=== PATIENT | female | born 1940 | race Caucasian/White ===

== ENCOUNTER 2021-01-28 15:39 | Outpatient (CLI) | payer BC, SELFPAY ==
--- NOTE | 2021-01-28 15:45 | XR_ITS ---
WS: [id number] SCREENING DEXA SCAN [employer] CLINICAL INFORMATION: OSTEOPOROSIS COMPARISON: 2013 FINDINGS: The L1-L4 bone mineral density measures 0.988 g/cm2. This corresponds to a T score score of -1.6 and Z score of -0.5. Left femoral neck bone mineral density measures 0.829 g/cm2. This corresponds to a T score of -1.4 an d Z score of 0.0. Right femoral neck bone mineral density measures 0.825 g/cm2. This corresponds to a T score -1.4of an d Z score of 0.0. Mean femoral neck bone mineral density measures 0.827 g/cm2. This corresponds to a T score of -1.4 an d Z score of 0.0. XR/XR DEXA axial skeleton* 24598 IMPRESSION: Osteopenia Patient's FRAX calculated 10 year probability for major osteoporotic fracture i s 16.5 % and osteoporotic hip fracture is 5.2%.
== END 2021-01-28 15:40 | disposition home or self-care (01) ==
PROVIDERS: Visit Provider Family Medicine
DX: M81.0 Age-related osteoporosis without current pathological fracture (principal); M85.80 Other specified disorders of bone density and structure, unspecified site
CPT/HCPCS: 77080

== ENCOUNTER 2021-05-23 08:29 | Inpatient (IN) | payer MEDICARE, SELFPAY ==
[2021-05-23] VITALS (13 sets, daily range): BP systolic 158–250; BP diastolic 70–154; PULSE 59–88; RESP 16–22; TEMP 36.6–36.8; O2SAT 90–99; BMI 30.7
--- NOTE | 2021-05-23 08:39 | CT_ITS ---
WS: [id number] CT HEAD NONCONTRAST HISTORY: Symptoms of Acute Stroke; dizziness/vertigo; r facial droop TECHNIQUE: Contiguous axial imaging performed through the brain in 2.5 mm imaging. Bone and soft tiss ue windows. Sagittal and coronal reformats reviewed. All CT scans at [facility] use at least one of these dose optimization techniques: automated exposure control; mA and/or kV adjustment per pa tient size (includes targeted exams where dose is matched to clinical indication); or iterative recon struction. DLP: 854.52 mGy.cm COMPARISON: None available. No acute intracranial hemorrhage, midline shift or mass effect. Mild atrophy and mild chronic microvascular ischemic disease. No definite area of sulcal effacement. There is a prior lacunar infarct in the LEFT caudate head and the LEFT insular ribbon. Small lacunar infarct in the anterior limb of the RIGHT internal capsule. Ventricles: Normal size with no hydrocephalus. Paranasal sinuses: Very small air-fluid level LEFT maxillary sinus. Mastoid air cells: Well pneumatized. Calvarium and scalp: Skull is intact with no soft tissue edema or swelling. CT/CT head wo con* [id number] IMPRESSION: 1. No acute intracranial hemorrhage or edema. 2. Mild atrophy and mild chronic ischemic disease with chronic lacunar infarct s as described above. Notified Desmondtatianna Dunaway MD at 05/23/2021 9:23 AM.
--- NOTE | 2021-05-23 08:39 | XR_ITS ---
WS: [id number] Exam: XR chest 1V portable [id number] Date/Time of Exam: 05/23/2021 8:46 AM Reason For Exam: r facial droop; htn Comparison 08/11/2011. The lungs are fully expanded and clear. Heart size is top limits normal. No pleural effusions. Chroni c interstitial changes. Chronic widening of the superior mediastinum on the right. Bony structures ar e intact. XR/XR chest 1V portable [id number] IMPRESSION: 1. No acute cardiopulmonary finding. 2. Chronic interstitial changes. 3. Chronic widening of the superior mediastinum on the right.
--- NOTE | 2021-05-23 08:39 | ECG_ITS ---
[facility] Test Date: 2021-05-23 Pat Name: Darian Faith Department: Room: Gender: Female [employer]ooter: : 1940 Requested By: Desmond French Order Number: [id number] Reading MD: Inocencia Sheehan M.D. Measurements Intervals [place] Rate: 53 P: 81 SC: 150 QRS: 51 QRSD: 108 T: -4 QT: 528 QTc: 499 Interpretive Statements SINUS BRADYCARDIA WITH OCCASIONAL VENTRICULAR PREMATURE COMPLEXES ST DEVIATION AND MODERATE T-WAVE ABNORMALITY, CONSIDER INFERIOR ISCHEMIA [-0.1+ mV T-WAVE IN II/aVF] No previous ECG available for comparison Electronically Signed On 05-23-2021 19:16:06 CONVEYANCER by Inocencia Sheehan M.D. [id number] f
--- NOTE | 2021-05-23 08:45 | W.ED.NEUROSD ---
HPI - Neuro Symptoms/Deficit General: Chief Complaint: Neuro Symptoms/Deficit Stated Complaint: STROKE SYMPTOMS Time Seen by Provider: 05/23/21 08:31 Source: patient and EMS Mode of arrival: EMS Limitations: no limitations History of Present Illness: HPI Narrative: Patient reportedly went to bed around 10:30 PM last night. She states she awakened around 1:50 AM to go the bathroom and felt dizzy and had dry heaves. She states she was off balance from her vertigo. She went back to bed and was found by family in the morning on the floor. She states she tried to get up and became dizzy and fell. She denied striking her head. She does complain of mild right anterior knee pain. She states she had difficulty walking due to mild weakness in her right lower extremity. She states she was still dizzy. She denies any nausea now but still has mild dizziness. Her blood sugar was 246 by EMS prior to arrival. Blood pressure by EMS was 150s over 90s. However blood pressure was higher here in the ER. Patient states she did not have her medications for blood pressure this morning. She does not take any blood thinners. She denies any allergies to medications. She denies any previous CVA. She denies diabetes. She does have a history of hypertension. She denies tobacco or alcohol use. Last known well time was 2229 last night Location: right leg and other (Vertigo) History of same: No Severity: moderate Quality: weak Relieving factors: none Exacerbating factors: none On Anticoagulants: No Associated symptoms: Reports nausea, vertigo and vomiting; Deny chest pain, cough, diaphoresis, fevers/chills, headache(s), anorexia, malaise, seizures, short of breath, syncope, tingling or weakness Treatments Prior to Arrival: none Review of Systems Const: Denies: fever(s), chills, malaise or diaphoresis Eyes: Denies: change in vision ENMT: Denies: throat pain Card: Denies: chest pain or syncope Resp: Denies: dyspnea or wheezing GI: Reports: nausea and vomiting; Denies: abdominal pain : Denies: flank pain Musc: Denies: neck pain or back pain Skin/Breast: Denies: rash or pruritus Neuro: Reports: weakness in extremities, dizziness and vertigo; Denies: headache(s), confusion or Slurred speech present Psych: Denies: anxiety Timoteo/Lymph: Denies: enlarged lymph nodes PFSH ED PFSH: Medical History (Updated 05/23/21 @ 15:38 by Chris Jha MD) GERD (gastroesophageal reflux disease) HTN (hypertension) Hyperlipidemia Surgical History History of cholecystectomy History of hysterectomy History of tonsillectomy and adenoidectomy Family History (Updated 05/23/21 @ 15:29 by Chris Jha MD) Other Cancer Social History (Updated 05/23/21 @ 15:30 by Chris Jha MD) Smoking and tobacco status: never smoked Alcohol intake: never Physical Exam Const: COMMON NORMALS: no acute distress, patient oriented x3, no limitations and well nourished EXAM LIMITATIONS: no altered mental status GENERAL APPEARANCE: cooperative HENMT: COMMON NORMALS: normocephalic and atraumatic HEAD & SCALP: normocephalic and atraumatic FACE & SINUS: normal facial exam Eye: COMMON NORMALS: EOMs intact bilaterally Neck/C-Spine: COMMON NORMALS: full ROM, no lymphadenopathy, supple and no meningeal signs GENERAL: Yes normal visual inspection Lymph: LYMPHATIC: no lymphadenopathy noted Chest: COMMONS NORMALS: normal inspection of the chest and normal palpation of entire chest wall CHEST: No Ecchymosis present and No rash Resp: COMMON NORMALS: normal respiratory effort, No retractions and clear to auscultation bilaterally EFFORT & INSPECTION: No respiratory distress AUSCULTATION: clear to auscultation bilaterally Cardio: COMMON NORMALS: regular rate, regular rhythm and Peripheral pulses 2+ throughout JUGULAR VENOUS DISTENTION: no JVD RATE: regular rate RHYTHM: regular rhythm PERIPHERAL PULSES: Peripheral pulses 2+ throughout GI: COMMON NORMALS: Normal to inspection, nondistended, normoactive bowel sounds present and non-tender : COMMON NORMALS: Yes no CVA tenderness BLADDER/KIDNEY EXAM: Yes no CVA tenderness Back/Pelvis: COMMON NORMALS: no CVA tenderness Extremity: COMMON NORMALS: normal to inspection, full ROM and capillary refill normal Neuro: COMMON NORMALS: patient oriented x3, moves all extremities, no focal motor deficits, no sensory deficits noted and deep tendon reflexes 2+ bilaterally MENINGEAL SIGNS: Yes no meningeal signs CRANIAL NERVES: Yes CN normal except as noted and Yes CN VII (facial) (Mild right facial droop.) SPEECH: speech normal Psych: COMMON NORMALS: mental status grossly normal and Normal thought process present THOUGHT PROCESS: Normal thought process present Skin: COMMON NORMALS: no rashes or lesions noted and no wounds GENERAL SKIN EXAM: no rashes or lesions noted Course Vital Signs: Vital signs: Vital Signs Temperature 97.8 F 05/23/21 08:35 Pulse Rate 61 05/23/21 08:35 Respiratory Rate 18 05/23/21 08:35 Blood Pressure 158/77 05/23/21 13:29 Pulse Oximetry 96 05/23/21 08:35 MDM - Neuro Symptoms/Deficit MDM Narrative: Medical decision making narrative: Patient with elevated blood pressure will treat with hydralazine 0920: bp 175/62; still dizzy,will give small dose of phenergan 1020: I gave pt dysphagia screen and pt failed screen. pt will be npo. d/w dr. jha hospitalist. will proceed with cta of head/neck and then consult neurologist. Last know well time of 0 last pm. 1140: consult to [facility] for neuro consult. 1150: d/w neurologist Dr. Vela [facility]. He states that patient is not a candidate for tPA since she is out of the window for treatment. He will review the CT scans and discussed with neurosurgery and/or interventional radiology to see if patient is a candidate for any kind of intervention. He does not believe the patient will be a candidate for intervention but will consult to see if intervention is needed. 1230: d/w neurologist again. He discussed case with neuro interventional physician and they requested a MRI of the head without contrast with DWI/flair sequence which was a brief MRI of the brain. They will then review that and see if there decision making changes. At this point they do not recommend any intervention. He does recommend aspirin therapy at this time. 1515: MRI of the brain shows acute infarction/cva in the right posterior circulation. See MRI report 1535: D/w Dr. Vela with [facility]. He discussed case with his interventional neurology team. They decided that the patient is not a candidate for intervention after reviewing the MRI films. They recommend medical therapy only which includes aspirin and oral high-dose statin. He said he is available for further consult if needed. Dr. Jha hospitalist will admit the patient. He has seen the patient in the ER already. He wrote admission orders. Lab Data: Attestation: I reviewed the patient's lab results. Lab results narrative: glucose is a fasting level Labs: Lab Results 05/23/21 05/23/21 05/23/21 08:30 08:30 08:30 WBC 10.2 10^3/uL H 10 ^3/uL (4.0-10.0) RBC 4.98 10^6/uL 10^6 /uL (4.1-5.3) Hgb 14.5 g/dL g/dL (11.5-15.3) Hct 44.6 % % (37.0-47.0) MCV 89.6 fl fl (81-99) MCH 29.1 pg pg (28.0-34.0) MCHC 32.5 g/dL g/dL (30.0-36.0) RDW 13.9 % % (12.1-15.1) Plt Count 309 10^3/cmm 10^3 /cmm (130-400) MPV 9.5 fL fL (7.4-10.4) Neut % (Auto) 75.6 % % Lymph % (Auto) 18.7 % % [place] % (Auto) 4.7 % % Eos % (Auto) 0.2 % % Baso % (Auto) 0.4 % % Neut # (Auto) 7.68 10^3/uL 10^3 /uL (1.8-7.7) Lymph # (Auto) 1.9 10^3/uL 10^3/ uL (0.8-4.8) [place] # (Auto) 0.5 10^3/uL 10^3/ uL (0.2-0.9) Eos # (Auto) 0.0 10^3/uL 10^3/ uL (0.0-0.8) Baso # (Auto) 0.0 10^3/uL 10^3/ uL (0.0-0.1) Nucleated RBC % (a uto) 0 % % Nucleated RBCs # 0.0 /100WBC /100W BC APTT 26.6 SECONDS SECO NDS (23.9-36.7) Sodium 141 mmol/L mmol/L (136-145) Potassium 3.3 mmol/L L mmol /L (3.5-5.1) Chloride 97 mmol/L L mmol/ L (98-107) Carbon Dioxide 25 mmol/L mmol/L (22-29) Anion Gap 22.3 H (5-19) BUN 8 mg/dL mg/dL (8-23) Creatinine 0.7 mg/dL mg/dL (0.5-0.9) GFR Calculation Not Reportable Glucose 157 mg/dL H mg/dL (65-115) Calculated Osmolal ity 294 mOsm/kg mOsm/ kg (285-295) Calcium 9.1 mg/dL mg/dL (8.5-10.5) Total Bilirubin 0.5 mg/dL mg/dL (0.15-1.2) AST 32 U/L U/L (0-32) ALT 18 U/L U/L (0-33) Alkaline Phosphata se 58 IU/L IU/L (35-105) Total Protein 7.4 g/dL g/dL (6.6-8.7) Albumin 4.4 g/dL g/dL (3.5-5.2) Globulin 3.0 g/dL g/dL (1.3-4.6) Imaging Data^: Xray Ortho: Radiologist's impression: Ordering Provider/Ordering MD: Desmond Dunaway MD Date of Service: 05/23/21 Procedure(s): XR knee RT 4V [id number] Accession Number(s): [id number] Report Number: [id number] WS: [email or web address] Exam: XR knee RT 4V [id number] Date/Time of Exam: 05/23/2021 8:49 AM Reason For Exam: r knee pain/injury No acute fracture or dislocation. No joint effusion noted. Small bony protuberance seen along the lateral margin of the lateral femoral condyle may represent a small osteochondroma. Minimal DJD. No joint effusion seen. XR/XR knee RT 4V [id number] IMPRESSION: 1. Mild degenerative changes. 2. No fracture or joint effusion. Dictated By:Atul Hester, EMELINAigned By:Atul Hester, Janelle Date/Time:05/23/21 0911 CXR: Radiologist's impression: Ordering Provider/Ordering MD: Desmond Dunaway MD Date of Service: 05/23/21 Procedure(s): XR chest 1V portable [id number] Accession Number(s): [id number] Report Number: [id number] WS: [email or web address] Exam: XR chest 1V portable [id number] Date/Time of Exam: 05/23/2021 8:46 AM Reason For Exam: r facial droop; htn Comparison 08/11/2011. The lungs are fully expanded and clear. Heart size is top limits normal. No pleural effusions. Chronic interstitial changes. Chronic widening of the superior mediastinum on the right. Bony structures are intact. XR/XR chest 1V portable [id number] IMPRESSION: 1. No acute cardiopulmonary finding. 2. Chronic interstitial changes. 3. Chronic widening of the superior mediastinum on the right. Dictated By:Atul Hester, DOSigned By:Atul Hester, DOSigned Date/Time:05/23/[address] Head: Radiologist's impression: Ordering Provider/Ordering MD: Desmond Dunaway MD Date of Service: 05/23/21 Procedure(s): CT head wo con* [id number] Accession Number(s): [id number] Report Number: [id number] WS: [email or web address] CT HEAD NONCONTRAST HISTORY: Symptoms of Acute Stroke; dizziness/vertigo; r facial droop TECHNIQUE: Contiguous axial imaging performed through the brain in 2.5 mm imaging. Bone and soft tissue windows. Sagittal and coronal reformats reviewed. All CT scans at [facility] use at least one of these dose optimization techniques: automated exposure control; mA and/or kV adjustment per patient size (includes targeted exams where dose is matched to clinical indication); or iterative reconstruction. DLP: 854.52 mGy.cm COMPARISON: None available. No acute intracranial hemorrhage, midline shift or mass effect. Mild atrophy and mild chronic microvascular ischemic disease. No definite area of sulcal effacement. There is a prior lacunar infarct in the LEFT caudate head and the LEFT insular ribbon. Small lacunar infarct in the anterior limb of the RIGHT internal capsule. Ventricles: Normal size with no hydrocephalus. Paranasal sinuses: Very small air-fluid level LEFT maxillary sinus. Mastoid air cells: Well pneumatized. Calvarium and scalp: Skull is intact with no soft tissue edema or swelling. CT/CT head wo con* [id number] IMPRESSION: 1. No acute intracranial hemorrhage or edema. 2. Mild atrophy and mild chronic ischemic disease with chronic lacunar infarcts as described above. Notified Desmond Dunaway MD at 05/23/2021 9:23 AM. Dictated By:Leonor Mercado DOSigned By:Leonor Mercado DOSigned Date/Time:05/23/21 09 Other Imaging: Radiologist's impression: Ordering Provider/Ordering MD: Desmond Dunaway MD Date of Service: 05/23/21 Procedure(s): CT angio headneck* [id number] Accession Number(s): [id number] Report Number: [id number] WS: [email or web address] CT ANGIOGRAM CEREBRAL AND CAROTID ARTERIES HISTORY: weakness TECHNIQUE: CT angiogram is performed of the carotid and cerebral arteries. During arterial injection imaging is obtained from the skull vertex to the aortic arch in 1.25 mm imaging. Coronal and sagittal reformats are submitted. Additional multi planar reformats of the carotid and cerebral arteries are submitted, MIP imaging also reviewed. NASCET criteria utilized. All CT scans at [facility] use at least one of these dose optimization techniques: automated exposure control; mA and/or kV adjustment per patient size (includes targeted exams where dose is matched to clinical indication); or iterative reconstruction. CONTRAST: Omnipaque 350; 95 mL IV. DLP: 2301.63 mGy.cm COMPARISON: None available. Carotid Angiogram: Right carotid: Common carotid artery: Arises to inflammation innominate. Scattered plaque and mild intimal thickening. No significant stenosis. Internal carotid artery: Calcified plaque at the bifurcation. Plaque extends into the proximal and mid ICA but no high-grade stenosis. No thrombus identified. External carotid artery: Patent. Left carotid: Common carotid artery: Arises normally from the aorta. Small amount of calcified plaque and intimal thickening distally. Internal carotid artery: Increasing amount of calcified plaque in the bifurcation and proximal ICA. Calcification and plaque resulting in less than 50% stenosis. External carotid artery: Patent. Right vertebral artery: Small caliber RIGHT vertebral artery. Distal RIGHT vertebral artery is not visualized and occluded distal to the C1 vertebral body. Left vertebral artery: There is calcified plaque but no high-grade stenosis. Subclavian arteries: No stenosis or significant abnormality. Upper thorax: Slightly spiculated 4 mm nodule in the RIGHT upper lobe. Moderate calcified plaque within the aorta. Thyroid gland: There are several bilateral thyroid nodules. These are subcentimeter with the largest on the RIGHT measuring 4 mm. Osseous structures: Mild cervical spondylosis. 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 Distal LEFT vertebral artery is normal caliber with a few scattered plaques. Basilar artery: No significant stenosis or occlusion. No aneurysm. Intracranial Internal carotid arteries: Calcified plaque within the intracranial carotid arteries. 50% stenosis in the cavernous regions bilaterally in the supraclinoid carotids. No occlusion is identified. Middle cerebral arteries: Irregularity with areas of very mild narrowing in the LEFT M1 segment. No thrombus or occlusion identified. Normal caliber M2 and M3 segments. Very minimal atherosclerotic changes in the RIGHT M1 segment. No thrombus. Anterior cerebral arteries and ACOM: Normal. Posterior cerebral arteries and PCOM's: Small caliber posterior cerebral arteries but no occlusion. Posterior communicating arteries are intact. Dural venous sinuses are normally enhancing. Mastoid air cells: Normal. Paranasal sinuses: Normal. Calvarium: Normal. CT/CT angio headneck* [id number] IMPRESSION: 1. Very mild cervical carotid artery atherosclerosis. 2. Near 50% stenosis in the cavernous intracranial carotid arteries extending into the supraclinoid carotids. 3. Mild focal narrowing in the LEFT M1 segment. No complete occlusion and no thrombus identified. 4. Irregular 4 mm nodule RIGHT upper lobe. Recommend follow-up chest CT in 6 months. 5. 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 No acute thrombus. Dictated By:Leonor Mercado DOSigned By:Leonor Mercado DOSigned Date/Time:05/23/21 1131 MRI: Radiologist's impression: Ordering Provider/Ordering MD: Desmond Dunaway MD Date of Service: 05/23/21 Procedure(s): MR head wo con* [id number] Accession Number(s): [id number] Report Number: [id number] WS: [email or web address] MRI BRAIN WITHOUT CONTRAST, limited HISTORY: r side weakness; htn COMPARISON: None available. TECHNIQUE: Diffusion imaging, sagittal T1 and FLAIR axial are submitted. Diffusion-weighted images are positive involving the inferior medial RIGHT cerebellum. Infarct extends across the midline into the mid cerebellum to involve a small portion of the LEFT cerebellum. Infarct continues into the medial RIGHT occipital lobe. There is increased diffusion signal in the medulla. Medullary infarct indicates a branch from the vertebral or basilar artery. There was a focal defect in the distal RIGHT vertebral artery seen on the recent CTA which was thought to be congenital or hypoplastic. May be this is the site of a thrombus. No hyperdense thrombus was noted on the noncontrast CT. A filling defect could not be identified on the CT angiogram with certainty. There is additional extensive small vessel ischemic change within the juan and the supratentorial white matter. MR/MR head wo con* [id number] IMPRESSION: 1. Acute infarcts involving the RIGHT posterior circulation. There are acute infarcts involving the inferior RIGHT cerebellum, medial RIGHT occipital lobe and a small portion of the medulla oblongata. 2. No midline shift. Dictated By:Leonor Mercado DOSigned By:Leonor Mercado DOSigned Date/Time:05/23/21 1512 EKG Data^: EKG 1: Attestation: I personally reviewed and interpreted this EKG as follows: EKG interpretation date: 05/23/21 EKG interpretation time: 09:33 Interpretation: Sinus bradycardia with nonspecific ST-T changes. Artifact. LVH. Normal axis. Normal MN interval. Normal QT interval. Rare premature ventricular contraction Critical Care Time Critical Care Time: Critical Care Time: Yes Total Critical Care Time: 65 Attestation: .Stroke care. See orders. Specialist consultation Discharge Plan Discharge Patient Disposition: Admitted As Inpatient Clinical Impression: Hypertensive urgency Cerebrovascular accident Qualifiers: CVA mechanism: occlusion Precerebral and cerebral artery: vertebral artery Laterality of affected vessel: right Qualified Code(s): I63.211 - Cerebral infarction due to unspecified occlusion or stenosis of right vertebral artery Condition: Stable Coding Level of Care Code ED Virtual Assistant for Evelyn Fwd Exam Comprehensive
[2021-05-23] MEDS: hyDRALAzine 20 mg/mL INJ 1 mL 10 MG IVP ×3 (08:46→18:47)
--- NOTE | 2021-05-23 08:48 | XR_ITS ---
WS: [email or web address] Exam: XR knee RT 4V [id number] Date/Time of Exam: 05/23/2021 8:49 AM Reason For Exam: r knee pain/injury No acute fracture or dislocation. No joint effusion noted. Small bony protuberance seen along the lat eral margin of the lateral femoral condyle may represent a small osteochondroma. Minimal DJD. No join t effusion seen. XR/XR knee RT 4V [id number] IMPRESSION: 1. Mild degenerative changes. 2. No fracture or joint effusion.
[2021-05-23 08:50] LABS: Basophils % 0.4 %; Eosinophils % 0.2 %; Hematocrit 44.6 % (37.0-47.0); Hemoglobin 14.5 g/dL (11.5-15.3); Lymphocytes # 1.9 10^3/uL (0.8-4.8); Lymphocytes % 18.7 %; Mean Corpuscular HGB Conc 32.5 g/dL (30.0-36.0); Mean Corpuscular Hemoglobin 29.1 pg (28.0-34.0); Mean Corpuscular Volume 89.6 fl (81-99); Mean Platelet Volume 9.5 fL (7.4-10.4); Monocytes # 0.5 10^3/uL (0.2-0.9); Monocytes % 4.7 %; Neutrophils # 7.68 10^3/uL (1.8-7.7); Neutrophils % 75.6 %; Nucleated Red Blood Cells % 0 %; Platelet Count 309 10^3/cmm (130-400); Red Blood Count 4.98 10^6/uL (4.1-5.3); Red Cell Distribution Width 13.9 % (12.1-15.1); White Blood Count 10.2 10^3/uL (4.0-10.0)
[2021-05-23 08:53] LABS: Partial Thromboplastin Time 26.6 SECONDS (23.9-36.7)
[2021-05-23 08:58] LABS: Alanine Aminotransferase 18 U/L (0-33); Albumin Level 4.4 g/dL (3.5-5.2); Alkaline Phosphatase 58 IU/L (35-105); Anion Gap 22.3 (5-19); Aspartate Amino Transferase 32 U/L (0-32); Blood Urea Nitrogen 8 mg/dL (8-23); Calcium 9.1 mg/dL (8.5-10.5); Carbon Dioxide 25 mmol/L (22-29); Chloride 97 mmol/L (98-107); Creatinine Clr Calc Pharmacy 62.0012; Glucose 157 mg/dL (65-115); Osmolality Calculated 294 mOsm/kg (285-295); Potassium 3.3 mmol/L (3.5-5.1); Sodium 141 mmol/L (136-145); Total Bilirubin 0.5 mg/dL (0.15-1.2); Total Protein 7.4 g/dL (6.6-8.7)
[2021-05-23] MEDS: promethazine 25 mg/mL SDV 1 mL 6.25 MG IM (09:35)
--- NOTE | 2021-05-23 09:38 | PC.NURSE ---
pt placed on continuous spo2, nibp, and cm.
--- NOTE | 2021-05-23 10:26 | CT_ITS ---
WS: [id number] CT ANGIOGRAM CEREBRAL AND CAROTID ARTERIES HISTORY: weakness TECHNIQUE: CT angiogram is performed of the carotid and cerebral arteries. During arterial injection imaging is obtained from the skull vertex to the aortic arch in 1.25 mm imaging. Coronal and sagittal reformats are submitted. Additional multi planar reformats of the carotid and cerebral arteries are submitted, MIP imaging also reviewed. NASCET criteria utilized. All CT scans at [facility] us e at least one of these dose optimization techniques: automated exposure control; mA and/or kV adjust ment per patient size (includes targeted exams where dose is matched to clinical indication); or iter ative reconstruction. CONTRAST: Omnipaque 350; 95 mL IV. DLP: 2301.63 mGy.cm COMPARISON: None available. Carotid Angiogram: Right carotid: Common carotid artery: Arises to inflammation innominate. Scattered plaque and mild intimal thickenin g. No significant stenosis. Internal carotid artery: Calcified plaque at the bifurcation. Plaque extends into the proximal and mi d ICA but no high-grade stenosis. No thrombus identified. External carotid artery: Patent. Left carotid: Common carotid artery: Arises normally from the aorta. Small amount of calcified plaque and intimal t hickening distally. Internal carotid artery: Increasing amount of calcified plaque in the bifurcation and proximal ICA. C alcification and plaque resulting in less than 50% stenosis. External carotid artery: Patent. Right vertebral artery: Small caliber RIGHT vertebral artery. Distal RIGHT vertebral artery is not vi sualized and occluded distal to the C1 vertebral body. Left vertebral artery: There is calcified plaque but no high-grade stenosis. Subclavian arteries: No stenosis or significant abnormality. Upper thorax: Slightly spiculated 4 mm nodule in the RIGHT upper lobe. Moderate calcified plaque with in the aorta. Thyroid gland: There are several bilateral thyroid nodules. These are subcentimeter with the largest on the RIGHT measuring 4 mm. Osseous structures: Mild cervical spondylosis. 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 Di stal LEFT vertebral artery is normal caliber with a few scattered plaques. Basilar artery: No significant stenosis or occlusion. No aneurysm. Intracranial Internal carotid arteries: Calcified plaque within the intracranial carotid arteries. 50 % stenosis in the cavernous regions bilaterally in the supraclinoid carotids. No occlusion is identif ied. Middle cerebral arteries: Irregularity with areas of very mild narrowing in the LEFT M1 segment. No t hrombus or occlusion identified. Normal caliber M2 and M3 segments. Very minimal atherosclerotic regan ges in the RIGHT M1 segment. No thrombus. Anterior cerebral arteries and ACOM: Normal. Posterior cerebral arteries and PCOM's: Small caliber posterior cerebral arteries but no occlusion. P osterior communicating arteries are intact. Dural venous sinuses are normally enhancing. Mastoid air cells: Normal. Paranasal sinuses: Normal. Calvarium: Normal. CT/CT angio headneck* [id number] IMPRESSION: 1. Very mild cervical carotid artery atherosclerosis. 2. Near 50% stenosis in the cavernous intracranial carotid arteries extending into the supraclinoid carotids. 3. Mild focal narrowing in the LEFT M1 segment. No complete occlusion and no t hrombus identified. 4. Irregular 4 mm nodule RIGHT upper lobe. Recommend follow-up chest CT in 6 m onths. 5. 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 No acute thrombus.
[2021-05-23] MEDS: iohexol 350 mg/mL 100 mL Btl IV (10:53)
--- NOTE | 2021-05-23 12:41 | PM.HP ---
Providers/Chief Complaint Chief Complaint: STROKE SYMPTOMS History of Present Illness Darian Faith is a 80 year old female who presents to the ER today with right sided weakness that started last night. PMH is significant for HTN and hyperlipidemia. When she woke up last night to use the bathroom, she felt dizzy and tried to use her 's walker. She subsequently fell and her found her on the floor trying to crawl to the bathroom. She states that at that time, she felt like the room was spinning but denies any ringing in her ears. This morning she had trouble swallowing water. Family states that her speech seems more slurred than usual and that she appears to have a slight right facial droop and flushed face. Family endorses that patient at baseline is able to drive and do things on her own at home. Patient also reports some nausea and dry heaving that also started last night. Patient states she still feels right sided weakness,incoordination currently in the ER. She feels exhausted and notes that her vision has gotten blurrier and her neck has recently started hurting since arriving to the ER. In the ER, BP on arrival was 248/154. Repeat BP a few hours later was 190/90. Patient usually takes BP meds at home but endorses not taking any today. She is vaccinated and denies past history of COVID. Review of Systems General: Reports: 10 or more systems reviewed and unremarkable except in HPI and below Const: Reports: fatigue; Denies: fever(s) or chills Eyes: Reports: blurry vision ENMT: Denies: throat pain or tinnitus Card: Denies: chest pain Resp: Denies: dyspnea GI: Denies: abdominal pain : Denies: flank pain Musc: Reports: neck pain Skin/Breast: Denies: rash Neuro: Reports: dizziness; Denies: headache(s) Psych: Denies: anxiety Endo: Denies: polyuria Timoteo/Lymph: Denies: easy bruising All/Imm: Denies: urticaria Medications/Allergies Allergies Allergy/AdvReac Type Severity Reaction Status Date / Time No Known Allergies Allergy Verified 05/23/21 08:42 PFSH Acute PFSH: Medical History (Updated 05/23/21 @ 15:38 by Chris Ruiz MD) GERD (gastroesophageal reflux disease) HTN (hypertension) Hyperlipidemia Surgical History History of cholecystectomy History of hysterectomy History of tonsillectomy and adenoidectomy Family History (Updated 05/23/21 @ 15:29 by Chris Ruiz MD) Other Cancer Social History (Updated 05/23/21 @ 15:30 by Chris Ruiz MD) Smoking and tobacco status: never smoked Alcohol intake: never Vitals/I&O/Wt Last Vital Signs Temp 97.8 F 05/23/21 08:35 Pulse 61 05/23/21 08:35 Resp 18 05/23/21 08:35 BP 190/90 05/23/21 12:00 Pulse Ox 96 05/23/21 08:35 Weight last 48 hrs Weight 83.915 kg Physical Exam Narrative: EXAM NARRATIVE: General exam, female, holding the back of her head, fully conversant HEENT: Pupils equally round. Oropharynx clear. Neck is supple no lymphadenopathy thyromegaly Cardiovascular regular rate and rhythm without murmur, no S3 or S4 Lungs clear no wheezing or crackles Abdomen is soft with positive bowel sounds. No obvious organomegaly exam was deferred Extremities no cyanosis clubbing or edema, cap refill brisk Neuro: Suspected visual field defect. Cerebellar dysfunction noted right upper and lower extremities. No weakness is noted. Gait not tested. Skin no rash Data : 05/23/21 08:30 05/23/21 08:30 Other data: LFTs normal COVID PCR pending Knee x-ray no fracture. CT head mild atrophy, chronic ischemic changes and chronic lacunar infarcts Chest x-ray no infiltrate, chronic widening of mediastinum on the right CTA head and neck demonstrated 50% stenosis cavernous carotid intracranial arteries, focal narrowing M1 left, 4 mm nodule right upper lobe, intracranial right vertebral artery occlusion MRI demonstrates acute infarcts right posterior circulation, right cerebellum, medial right occipital lobe, small portion of the medulla oblongata EKG sinus bradycardia, 1 PVC, normal axis, nonspecific ST-T wave changes A&P Assessment and plan (1) Cerebrovascular accident: Significant cerebellar CVA Not candidate for intervention per David Aspirin given rectally today Plavix, aspirin, statin as tolerated starting tomorrow PT/OT/ ST consultations Hydration Check echocardiogram Telemetry Status: Acute Qualifiers: CVA mechanism: occlusion Laterality of affected vessel: right Precerebral and cerebral artery: vertebral artery Qualified Code(s): I63.211 - Cerebral infarction due to unspecified occlusion or stenosis of right vertebral artery (2) Hyperlipidemia: High-dose statin Status: Acute (3) HTN (hypertension): Permissive hypertension currently Status: Acute (4) GERD (gastroesophageal reflux disease): Pepcid for GI prophylaxis Status: Acute Additional A&P Information Mild hypokalemia. Add potassium and IV fluids. 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
--- NOTE | 2021-05-23 12:48 | PC.NURSE ---
while at bedside pt is in nad. pt denies any further needs at this time.
[2021-05-23] MEDS: aspirin 300 mg Supp PR (13:01)
--- NOTE | 2021-05-23 13:42 | PC.NURSE ---
PT BE TAKEN TO MRI VIA AMBULANCE AND STRETCHER.
--- NOTE | 2021-05-23 14:00 | MR_ITS ---
WS: [id number] MRI BRAIN WITHOUT CONTRAST, limited HISTORY: r side weakness; htn COMPARISON: None available. TECHNIQUE: Diffusion imaging, sagittal T1 and FLAIR axial are submitted. Diffusion-weighted images are positive involving the inferior medial RIGHT cerebellum. Infarct extend s across the midline into the mid cerebellum to involve a small portion of the LEFT cerebellum. Infar ct continues into the medial RIGHT occipital lobe. There is increased diffusion signal in the medulla . Medullary infarct indicates a branch from the vertebral or basilar artery. There was a focal defect in the distal RIGHT vertebral artery seen on the recent CTA which was thought to be congenital or hy poplastic. May be this is the site of a thrombus. No hyperdense thrombus was noted on the noncontrast CT. A filling defect could not be identified on the CT angiogram with certainty. There is additional extensive small vessel ischemic change within the juan and the supratentorial whi te matter. MR/MR head wo con* [id number] IMPRESSION: 1. Acute infarcts involving the RIGHT posterior circulation. There are acute i nfarcts involving the inferior RIGHT cerebellum, medial RIGHT occipital lobe an d a small portion of the medulla oblongata. 2. No midline shift.
[2021-05-23 16:10] LABS: Thyroid Stimulating Hormone 2.41 uIU/mL (0.27-4.20)
[2021-05-23 16:14] LABS: Estmated Average Glucose 123; Hemoglobin A1C 5.9 % (4.0-6.0)
[2021-05-23 16:21] LABS: Adenovirus Not Detected (NOT DETECT); Chlamydia Pneumoniae Not Detected (NOT DETECT); Coronavirus 229E,HKU1,NL63,OC4 Not Detected (NOT DETECT); Human Metapneumovirus Not Detected (NOT DETECT); Human Rhinovirus/Enterovirus Not Detected (NOT DETECT); Influenza A Not Detected (NOT DETECT); Influenza A H1 Not Detected (NOT DETECT); Influenza A H1-2009 Not Detected (NOT DETECT); Influenza A H3 Not Detected (NOT DETECT); Influenza B Not Detected (NOT DETECT); Mycoplasma Pneumoniae Not Detected (NOT DETECT); Parainfluenza Virus Type 1 Not Detected (NOT DETECT); Parainfluenza Virus Type 2 Not Detected (NOT DETECT); Parainfluenza Virus Type 3 Not Detected (NOT DETECT); Parainfluenza Virus Type 4 Not Detected (NOT DETECT); Respiratory Syncytial Virus A Not Detected (NOT DETECT); Respiratory Syncytial Virus B Not Detected (NOT DETECT); SARS-COV-2 Not Detected (NOT DETECT)
[2021-05-23] MEDS: sodium chlor 0.9% + KCl 20 mEq 20 MEQ/1,000 ML BAG 100 MEQ IV (16:24)
--- NOTE | 2021-05-23 16:30 | PC.NURSE ---
while at bedside pt is in nad.pt does not verbalize any further needs.
[2021-05-23] MEDS: morphine 4 mg/mL SDV 1 mL 2 MG IVP (17:33)
[2021-05-23] MEDS: ondansetron 2 mg/ML SDV 2 mL 4 MG IVP (17:33)
[2021-05-23] MEDS: enoxaparin 40 mg/0.4 mL Syringe SUBCUT (17:35)
--- NOTE | 2021-05-23 19:15 | PC.NURSE ---
report given to kirit martin assumed care.
[2021-05-24] VITALS (11 sets, daily range): BP systolic 166–195; BP diastolic 67–80; PULSE 80–110; RESP 16–22; TEMP 36.5–37.2; O2SAT 89–98
[2021-05-24] MEDS: sodium chlor 0.9% + KCl 20 mEq 20 MEQ/1,000 ML BAG 100 MEQ IV ×2 (01:35→13:27)
[2021-05-24] MEDS: acetaminophen 325 mg Tablet 650 MG PO (01:51)
--- NOTE | 2021-05-24 06:00 | USCV_ITS ---
Darian Faith Age: 80 Gender: F : 1940 Exam Date: 05/24/2021 06:13 Ordering Phys: Chris Ruiz MD Technologist: DONTE [place] [facility] [place]: CVA BP: 180 / 73 HR: 71 Rhythm: Sinus Technical Quality: Technically difficult study MEASUREMENTS (Male / Female) Normal Values 2D ECHO LV Diastolic Diameter PLAX 4.4 cm 4.2 - 5.9 / 3.9 - 5.3 cm LV Systolic Diameter PLAX 3.0 cm IVS Diastolic Thickness 0.9 cm 0.6 - 1.0 / 0.6 - 0.9 cm IVS Systolic Thickness 1.6 cm LVPW Diastolic Thickness 1.4 cm 0.6 - 1.0 / 0.6 - 0.9 cm LVPW Systolic Thickness 1.3 cm RV Chamber Size 2.4 cm LVOT Diameter 2.0 cm LV Ejection Fraction 2D Teich 60.2 % LV Ejection Fraction MOD 2C 51.9 % LV Ejection Fraction 2C AL 50.9 % LA Diameter 3.3 cm LA Width 3.1 cm LA Height 4.3 cm RA Width 2.8 cm RA Height 4.1 cm Aorta at Sinotubular Diameter 2.1 cm M-MODE Aortic Annulus Diameter 3.1 cm LA Ao Ratio MM 1.0 MV E Point Septal Separation 0.3 cm DOPPLER AV Peak Velocity 159.0 cm/s LVOT Peak Velocity 132.0 cm/s AV Area Cont Eq vti 2.8 cm squared AV Area Cont Eq pk 2.7 cm squared MV Area PHT 3.7 cm squared Mitral E to A Ratio 1.3 MV E' Velocity 62.0 cm/s Mitral E to MV E' Ratio 21.1 Mitral E to LV E' Lateral Ratio 20.8 Mitral E to LV E' Septal Ratio 21.5 TR Peak Velocity 382.0 cm/s TR Peak Gradient 58.4 mmHg TV Peak E Velocity 49.0 cm/s PV Peak Velocity 114.0 cm/s RV Acceleration Time 0.1 s RV Ejection Time 0.3 s RV AcT/ET 0.4 FINDINGS Left Ventricle Normal left ventricular size and systolic function, EF 63 %. No regional wall motion abnormalities. Grade III/IV diastolic dysfunction (restrictive filling pattern), severely elevated filling pressures. Right Ventricle The right ventricle is normal in size and function. Right Atrium The right atrium is normal in size. Left Atrium Mildly increased left atrial size. Mitral Valve Moderate mitral annular calcification. Aortic Valve Thickened aortic valve. Tricuspid Valve No gross abnormalities noted Pulmonic Valve Pulmonic valve not well visualized. Pericardium Normal pericardium without effusion. Aorta Normal ascending aorta dimension. CONCLUSIONS Normal left ventricular size and systolic function, EF 63 %. No regional wall motion abnormalities. Grade III/IV diastolic dysfunction (restrictive filling pattern), severely elevated filling pressures. Mildly increased left atrial size. Moderate mitral annular calcification. There is no pericardial effusion. There are no intracardiac masses. No previous study is available for comparison. Dr Alejandro Pollard MD FACC (Electronically Signed) Final Date: 24 May 2021 17:37 S
[2021-05-24 06:03] LABS: Basophils % 0.1 %; Hematocrit 41.9 % (37.0-47.0); Hemoglobin 13.6 g/dL (11.5-15.3); Lymphocytes % 6.8 %; Mean Corpuscular HGB Conc 32.5 g/dL (30.0-36.0); Mean Corpuscular Hemoglobin 29.7 pg (28.0-34.0); Mean Corpuscular Volume 91.5 fl (81-99); Mean Platelet Volume 9.6 fL (7.4-10.4); Monocytes # 1.3 10^3/uL (0.2-0.9); Monocytes % 9.2 %; Neutrophils # 11.76 10^3/uL (1.8-7.7); Neutrophils % 83.4 %; Nucleated Red Blood Cells % 0 %; Platelet Count 258 10^3/cmm (130-400); Red Blood Count 4.58 10^6/uL (4.1-5.3); Red Cell Distribution Width 14.6 % (12.1-15.1); White Blood Count 14.1 10^3/uL (4.0-10.0)
[2021-05-24 06:17] LABS: Estmated Average Glucose 123; Hemoglobin A1C 5.9 % (4.0-6.0)
[2021-05-24 06:25] LABS: Blood Urea Nitrogen 12 mg/dL (8-23); Calcium 8.1 mg/dL (8.5-10.5); Carbon Dioxide 24 mmol/L (22-29); Chloride 98 mmol/L (98-107); Cholesterol 176 mg/dL (0-200); Creatinine Clr Calc Pharmacy 62.0012; Glucose 127 mg/dL (65-115); HDL Cholesterol 40 mg/dL (60-100); LDL Cholesterol Calculated 97 mg/dL (50-129); LDL HDL Ratio 2.43 RATIO (0.00-3.22); Osmolality Calculated 287 mOsm/kg (285-295); Sodium 138 mmol/L (136-145); Triglycerides 195 mg/dL (0-150)
[2021-05-24 06:27] LABS: Anion Gap 19.9 (5-19); Potassium 3.9 mmol/L (3.5-5.1)
--- NOTE | 2021-05-24 09:08 | PM.PN ---
Subjective Subjective: Interval history: Darian reports no headache today. She seems somewhat slow in her responses, perhaps mildly confused. Denies being short of breath. It appears her oxygen was turned up last night, but quickly was able to be lowered to room air this morning. Medications: Reviewed: Yes Vitals/I&O/Wt Last Vital Signs Temp 98.2 F 05/24/21 08:00 Pulse 90 05/24/21 08:00 Resp 18 05/24/21 08:00 BP 166/76 05/24/21 08:00 Pulse Ox 91 05/24/21 08:00 05/23/21 05/24/21 05/24/21 22:59 06:59 14:59 Intake Total 918.333 / 918.333 Output Total 325 / 325 Balance 593.333 / 593.333 Weight last 48 hrs Weight 83.915 kg Physical Exam Narrative: EXAM NARRATIVE: General exam, no obvious distress and conversant Neck is supple no lymphadenopathy thyromegaly Cardiovascular regular rate and rhythm without murmur, no S3 or S4 Lungs clear no wheezing or crackles Abdomen is soft with positive bowel sounds. No obvious organomegaly Extremities no cyanosis clubbing or edema, cap refill brisk Neuro: Suspected visual field defect. Cerebellar dysfunction noted right upper and lower extremities. No weakness is noted. Data : 05/24/21 04:48 05/24/21 04:48 A&P Assessment and plan (1) Cerebrovascular accident: Significant cerebellar CVA Not candidate for intervention per Hernandez Plavix, aspirin, statin PT/OT/ ST consultations Continue hydration. Reduce fluids slightly Await echocardiogram Telemetry Speech therapy hopefully can initiate a diet today. Status: Acute Qualifiers: CVA mechanism: occlusion Laterality of affected vessel: right Precerebral and cerebral artery: vertebral artery Qualified Code(s): I63.211 - Cerebral infarction due to unspecified occlusion or stenosis of right vertebral artery (2) Hyperlipidemia: High-dose statin Status: Acute (3) HTN (hypertension): Permissive hypertension currently Status: Acute (4) GERD (gastroesophageal reflux disease): Pepcid for GI prophylaxis Status: Acute Additional A&P Information Mild hypokalemia. 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
[2021-05-24] MEDS: ipratropium-albuterol 3 mL Neb INHALATION ×2 (10:40→20:07)
--- NOTE | 2021-05-24 15:04 | PC.CHAP ---
Pastoral Care Encounter/Spiritual Assessment Type of Contact [] Declined dental technologist visit [] Patient/Family/Request visit [] Outpatient visit [] Follow-up visit [] Physician referral [] Code/Alert [xx] Routine visit [] Staff referral [] Actively dying [] Patient sleeping [] Family support [] [] Out of room [] Palliative care [] [] Receiving care in room [] Pre-surgical visit [] Trauma [] Long length of stay [] ICU visit [] Other: Relational/Emotional Strength [xx] Patient feels connected with others/family/visitors/staff [] Distress [] Loneliness/isolation [] Abandonment Spirituality of Patient [] Person of Natalia [] Attends Faith of their Natalia [] Believes in Prayer [] Reads Bible or Hindu materials [] There are Spiritual issues to be addressed Supervisor Case Loading Interventions [] Prayer [xx] Active listening [xx] Non-anxious presence [] Spiritual/emotional support [] Crisis/trauma care [] Spiritual counseling [] Bereavement support [] Provided bereavement packet [] Provided Bible/devotional materials [] Provided toy/stuffed animal, coloring book to patient or family member [] Provided Communion [] Anointing/[place] [] Salvation [xx] Completed spiritual assessment [] Other: Impact on Illness or Injury [] Angry [] Fearful [] Anxious [] Often cries [] Exhaustion [] Unable to work [] Unable to attend religious [] Unable to walk/stand [] Unable to read [] Unable to drive [] Unable to eat/drink [] Unable to sleep [] Unable to be with family [] Patient intubated [] Other: Summary Patient had 2 daughters present. They declined prayer. Patient did not speak. Time spent with patient 1 minute
[2021-05-24] MEDS: enoxaparin 40 mg/0.4 mL Syringe SUBCUT (19:10)
[2021-05-25] VITALS (9 sets, daily range): BP systolic 185–190; BP diastolic 78–95; PULSE 75–110; RESP 14–19; TEMP 36.7–37.3; O2SAT 91–99
[2021-05-25 04:47] LABS: Basophils % 0.4 %; Hematocrit 40.3 % (37.0-47.0); Hemoglobin 12.8 g/dL (11.5-15.3); Lymphocytes # 1.3 10^3/uL (0.8-4.8); Lymphocytes % 13.4 %; Mean Corpuscular HGB Conc 31.8 g/dL (30.0-36.0); Mean Corpuscular Hemoglobin 29.1 pg (28.0-34.0); Mean Corpuscular Volume 91.6 fl (81-99); Mean Platelet Volume 9.5 fL (7.4-10.4); Monocytes # 0.7 10^3/uL (0.2-0.9); Monocytes % 6.9 %; Neutrophils # 7.45 10^3/uL (1.8-7.7); Neutrophils % 78.4 %; Nucleated Red Blood Cells % 0 %; Platelet Count 232 10^3/cmm (130-400); Red Cell Distribution Width 14.7 % (12.1-15.1); White Blood Count 9.5 10^3/uL (4.0-10.0)
[2021-05-25 05:33] LABS: Anion Gap 15.2 (5-19); Blood Urea Nitrogen 12 mg/dL (8-23); Calcium 8.6 mg/dL (8.5-10.5); Carbon Dioxide 28 mmol/L (22-29); Chloride 103 mmol/L (98-107); Creatinine Clr Calc Pharmacy 62.0012; Glucose 119 mg/dL (65-115); Osmolality Calculated 297 mOsm/kg (285-295); Potassium 3.2 mmol/L (3.5-5.1); Sodium 143 mmol/L (136-145)
[2021-05-25] MEDS: sodium chlor 0.9% + KCl 20 mEq 20 MEQ/1,000 ML BAG 75 MEQ IV (08:38)
[2021-05-25 10:36] LABS: Magnesium 1.8 mg/dL (1.7-2.3)
--- NOTE | 2021-05-25 11:02 | P.PN_ITS ---
Subjective Subjective: Interval history: No headache. Still with some coordination issues on the right. Does not feel like she can swallow. Medications: Reviewed: Yes Vitals/I&O/Wt Last Vital Signs Temp 98.8 F 05/25/21 09:07 Pulse 80 05/25/21 09:07 Resp 16 05/25/21 09:07 BP 190/79 05/25/21 09:07 Pulse Ox 98 05/25/21 09:07 05/24/21 05/25/21 05/25/21 22:59 06:59 14:59 Intake Total 1000 / 2000 Output Total 400 / 400 Balance 600 / 1600 Physical Exam Narrative: EXAM NARRATIVE: General exam, no distress, conversant Neck is supple no lymphadenopathy thyromegaly Cardiovascular regular rate and rhythm without murmur, no S3 or S4 Lungs clear no wheezing or crackles Abdomen is soft with positive bowel sounds. No obvious organomegaly Extremities no cyanosis clubbing or edema, cap refill brisk Neuro: Suspected visual field defect. Cerebellar dysfunction noted right upper and lower extremities. No weakness is noted. Overall unchanged Data : 05/25/21 04:05 05/25/21 04:05 A&P Assessment and plan (1) Cerebrovascular accident: Significant cerebellar CVA Not candidate for intervention per Hernandez Plavix, aspirin, statin PT/OT/ ST consultations Continue hydration. Changed to D5 If unable to take orally by tomorrow consider PEG tube and surgery consultation Echocardiogram demonstrated EF of 63%, 3/4 diastolic dysfunction Telemetry Status: Acute Qualifiers: CVA mechanism: occlusion Laterality of affected vessel: right Precerebral and cerebral artery: vertebral artery Qualified Code(s): I63.211 - Cerebral infarction due to unspecified occlusion or stenosis of right vertebral artery (2) Hyperlipidemia: High-dose statin Status: Acute (3) HTN (hypertension): Permissive hypertension currently Status: Acute (4) GERD (gastroesophageal reflux disease): Pepcid for GI prophylaxis Status: Acute Additional A&P Information Mild hypokalemia. Supplement. Check magnesium level. 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
[2021-05-25] MEDS: morphine 4 mg/mL SDV 1 mL 2 MG IVP (11:18)
[2021-05-25] MEDS: dextrose 5%-ns + KCl 20 20 MEQ/1,000 ML BAG 100 MEQ IV ×2 (11:21→19:24)
[2021-05-25] MEDS: aspirin 300 mg Supp PR (12:37)
[2021-05-25] MEDS: lidocaine 1% 5 ML in potassium chloride premix 100 ML 25 ML IV (12:38)
[2021-05-25] MEDS: enoxaparin 40 mg/0.4 mL Syringe SUBCUT (16:58)
--- NOTE | 2021-05-25 21:32 | PC.NURSE ---
ASSESSMENT Pt is forgetful and when gets up to BSC she asks several times what she needs to do next. When questioned she is oriented. Has pad call light that she just needs to put her hand on and she does use it but thinks it isnt working because she cant hear it ring. Assured it is working. Is a little off balance when she gets up but does well with one assist. Moves all extremities well and no drift noted with neuro check done ths evening. Does have problens with her peripheral vision and swallowing.
[2021-05-26] VITALS (9 sets, daily range): BP systolic 172–207; BP diastolic 79–107; PULSE 69–99; RESP 16–22; TEMP 36.6–37.1; O2SAT 93–96
[2021-05-26 04:22] LABS: Anion Gap 14.1 (5-19); Blood Urea Nitrogen 12 mg/dL (8-23); Calcium 8.1 mg/dL (8.5-10.5); Carbon Dioxide 25 mmol/L (22-29); Chloride 108 mmol/L (98-107); Creatinine Clr Calc Pharmacy 62.0012; Glucose 121 mg/dL (65-115); Osmolality Calculated 297 mOsm/kg (285-295); Potassium 4.1 mmol/L (3.5-5.1); Sodium 143 mmol/L (136-145)
[2021-05-26] MEDS: dextrose 5%-ns + KCl 20 20 MEQ/1,000 ML BAG 100 MEQ IV ×2 (05:02→18:10)
--- NOTE | 2021-05-26 05:24 | PC.NURSE ---
SHIFT SUMMARY Has not slept much tonight. Has been up many times to BSC. Urinates 100-150ml at a time. Continues to require some direction at times as to what she needs to do. Will ask what she needs to do next. For example she will ask if she needs to sit down now when getting up to BSC. Has always used call light tonight when needing to get up. Bed alarm has been kept on for safety. Does have some occ balance issues occ and seems to be on right side. Moves all extremities well and is able to lift legs onto bed without any difficulty. This morning stated she was just a little dizzy when she sat up but passed quickly. Speech is clear. IV infusing at 100ml/hr rate. Remains NPO
--- NOTE | 2021-05-26 07:48 | PC.NURSE ---
i reported the high bp to the nurse. / 207/78
[2021-05-26] MEDS: hyDRALAzine 20 mg/mL INJ 1 mL 5 MG IVP (09:58)
[2021-05-26] MEDS: aspirin 300 mg Supp PR (09:58)
--- NOTE | 2021-05-26 10:55 | PC.SOCIAL ---
IMM Update pg 2 of IMM updated and reviewed w/ patient. Copy provided and copy placed in chart.
[2021-05-26] MEDS: morphine 4 mg/mL SDV 1 mL 2 MG IVP (13:07)
--- NOTE | 2021-05-26 13:31 | PM.PN ---
Subjective Subjective: Interval history: Patient reports she is doing okay but still cannot swallow. Still feels clumsy on the right side. Medications: Reviewed: Yes Vitals/I&O/Wt Last Vital Signs Temp 98.6 F 05/26/21 11:41 Pulse 89 05/26/21 11:41 Resp 18 05/26/21 13:07 BP 196/80 05/26/21 11:41 Pulse Ox 95 05/26/21 11:41 05/25/21 05/26/21 05/26/21 22:59 06:59 14:59 Intake Total 910 / 1116.25 950 / 2066.25 Output Total 325 / 325 750 / 1075 Balance 585 / 791.25 200 / 991.25 Physical Exam Narrative: EXAM NARRATIVE: General exam, no distress, conversant, frustrated at still being in the hospital Neck is supple Cardiovascular regular rate and rhythm without murmur, no S3 or S4 Lungs clear no wheezing or crackles Abdomen is soft with positive bowel sounds. No obvious organomegaly Extremities no cyanosis clubbing or edema, cap refill brisk Neuro: Suspected visual field defect. Cerebellar dysfunction noted right upper and lower extremities. No weakness is noted. Again unchanged Data : 05/25/21 04:05 05/26/21 02:17 A&P Assessment and plan (1) Cerebrovascular accident: Significant cerebellar CVA Not candidate for intervention per Hernandez Plavix, aspirin, statin PT/OT/ ST consultations Continue hydration. Changed to D5 Surgery consultation for PEG tube Echocardiogram demonstrated EF of 63%, 3/4 diastolic dysfunction Telemetry Status: Acute Qualifiers: CVA mechanism: occlusion Laterality of affected vessel: right Precerebral and cerebral artery: vertebral artery Qualified Code(s): I63.211 - Cerebral infarction due to unspecified occlusion or stenosis of right vertebral artery (2) Hyperlipidemia: High-dose statin Status: Acute (3) HTN (hypertension): Permissive hypertension allowed for the first 48 hours For systolic blood pressure greater than 200, diastolic greater than 100 hydralazine will be used at this point and will start regular meds when PEG is established. Status: Acute (4) GERD (gastroesophageal reflux disease): Pepcid for GI prophylaxis Status: Acute Additional A&P Information Mild hypokalemia. Normal today Full code DVT prophylaxis with Lovenox Attestations Medical Necessity Statement*: Needs continued hospitalization secondary to significant cerebellar CVA with inability to swallow. 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
[2021-05-26] MEDS: enoxaparin 40 mg/0.4 mL Syringe SUBCUT (18:10)
--- NOTE | 2021-05-26 19:56 | PC.NURSE ---
Shift report received from Tiffany HELMS. Patient up on BSC. IV patent/infusing NS at 75mL/hr. Denies pain. No s/s of pain or discomfort. No needs voiced at this time.
[2021-05-27] VITALS (11 sets, daily range): BP systolic 144–224; BP diastolic 61–112; PULSE 70–115; RESP 14–18; TEMP 36.6–36.8; O2SAT 94–98
[2021-05-27] MEDS: hyDRALAzine 20 mg/mL INJ 1 mL 10 MG IVP ×2 (00:01→16:26)
[2021-05-27 07:01] LABS: Anion Gap 17.7 (5-19); Blood Urea Nitrogen 11 mg/dL (8-23); Calcium 9.4 mg/dL (8.5-10.5); Carbon Dioxide 21 mmol/L (22-29); Chloride 110 mmol/L (98-107); Creatinine Clr Calc Pharmacy 62.0012; Glucose 112 mg/dL (65-115); Osmolality Calculated 300 mOsm/kg (285-295); Potassium 3.7 mmol/L (3.5-5.1); Sodium 145 mmol/L (136-145)
[2021-05-27 07:02] LABS: Basophils # 0.1 10^3/uL (0.0-0.1); Eosinophils # 0.1 10^3/uL (0.0-0.8); Eosinophils % 0.6 %; Hematocrit 40.4 % (37.0-47.0); Hemoglobin 12.8 g/dL (11.5-15.3); Lymphocytes # 1.6 10^3/uL (0.8-4.8); Lymphocytes % 19.2 %; Mean Corpuscular HGB Conc 31.7 g/dL (30.0-36.0); Mean Corpuscular Hemoglobin 29.4 pg (28.0-34.0); Mean Corpuscular Volume 92.7 fl (81-99); Mean Platelet Volume 9.7 fL (7.4-10.4); Monocytes # 0.6 10^3/uL (0.2-0.9); Monocytes % 7.3 %; Neutrophils # 5.82 10^3/uL (1.8-7.7); Neutrophils % 70.8 %; Nucleated Red Blood Cells % 0 %; Platelet Count 272 10^3/cmm (130-400); Red Blood Count 4.36 10^6/uL (4.1-5.3); White Blood Count 8.2 10^3/uL (4.0-10.0)
[2021-05-27] MEDS: ipratropium-albuterol 3 mL Neb INHALATION ×2 (07:41→20:27)
[2021-05-27] MEDS: dextrose 5%-ns + KCl 20 20 MEQ/1,000 ML BAG 100 MEQ IV (07:46)
--- NOTE | 2021-05-27 08:25 | P.ANESASSM_ITS ---
Pre-Anesthetic Assessment Pre-Anesthetic Assessment: Height/Weight: Height 1.65 m Weight 83.915 kg Temp Pulse Resp BP Pulse Ox 98.3 F 85 18 199/82 96 05/27/21 04:26 05/27/21 07:46 05/27/21 07:43 05/27/21 04:26 05/27/21 07:43 Preop Diagnosis: cva Proposed Procedure: Operation Date: 05/27/21 11:30 Proposed Procedures p EGD(Not Applicable) - Chad Hendricks MD s PEG Tube Insertion(Not Applicable) - Chad Hendricks MD Was Beta Liam taken within 24 hours: N/A (Home medication not prescribed in hospital) Was Clonidine taken within 24 hours: N/A Social: Social History: No alcohol and No tobacco Exam: Pre-Anes Outpt Exam: alert, oriented x 3, clear to auscultation bilaterally and regular rate & rhythm Airway: Submandibular: WNL Cervical ROM: WNL MP: 2 Dentition: Full Pulmonary: Comments: Apnea observed in hospital no dx of TRACI CV/HEM: CV/HEM: HTN Comments: TTE 05/25 CONCLUSIONS Normal left ventricular size and systolic function, EF 63 %. No regional wall motion abnormalities. Grade III/IV diastolic dysfunction (restrictive filling pattern), severely elevated filling pressures. Mildly increased left atrial size. Moderate mitral annular calcification. There is no pericardial effusion. There are no intracardiac masses. No previous study is available for comparison. EKG 05/25 SINUS BRADYCARDIA WITH OCCASIONAL VENTRICULAR PREMATURE COMPLEXES ST DEVIATION AND MODERATE T-WAVE ABNORMALITY, CONSIDER INFERIOR ISCHEMIA [-0.1+ mV T-WAVE IN II/aVF] No previous ECG available for comparison Electronically Signed On 05-23-2021 19:16:06 [employer] TECHNICIAN by Inocencia Sheehan M.D. : Comments: Hyperchloremia Hepatic: Hepatic: None reported GI: GI: GERD (Well controlled) Metabolic: Metabolic: None reported Musc/skel: Musc/skel: None reported Neuropsych: Neuropsych: CVA (Acute ischemic cerebellar stroke) Anesthetic Plan: ASA status: 3 Anesthesia: Anesthesia Evaluation and MAC Other: Discussed risk and benefits of anesthesia with patient and her daughter. We discussed the spectrum of MAC including possible recall of intraop stimuli including brief pain/discomfort. Risk of > 500 ml blood loss (7ml/kg in children): No Medications/Allergies Current Medications: Current Medications Generic Name Dose Route Start Last Admin Trade Name Freq PRN Reason Stop Dose Admin Acetaminophen 650 mg 05/23/21 17:04 05/24/21 01:51 Acetaminophen 32 5 Mg Tablet PO 650 mg Q6H PRN Administration pain or fever Albuterol/Ipratrop ium 3 ml 05/24/21 07:45 05/27/21 07:41 Ipratropium-Albu terol 3 Ml Neb INHALATION 3 ml Q4H PRN Administration SHORTNESS OF IGNACIA TH Aspirin 81 mg 05/24/21 09:00 05/27/21 07:46 Aspirin 81 Mg Ec Tablet PO Not Given DAILY [facility] Aspirin 300 mg 05/25/21 11:10 05/27/21 07:46 Aspirin 300 Mg S upp IA Not Given DAILY [facility] Atorvastatin Calci um 80 mg 05/24/21 09:00 05/27/21 07:46 Atorvastatin 40 Mg Tablet PO Not Given DAILY [facility] Clopidogrel Bisulf ate 75 mg 05/24/21 09:00 05/27/21 07:46 Clopidogrel 75 M g Tablet PO Not Given DAILY [facility] Enoxaparin Sodium 40 mg 05/23/21 16:59 05/26/21 18:10 Enoxaparin 40 Mg /0.4 Ml Syringe SUBCUT 40 mg Q24H REJI Administration Hydralazine HCl 10 mg 05/26/21 13:35 05/27/21 00:01 Hydralazine 20 M g/Ml Inj 1 Ml IVP 10 mg Q4H PRN Administration HYPERTENSION Potassium Chloride /Dextrose/Sod Cl 20 meq in 1,000 m ls @ 100 mls/hr 05/25/21 11:15 05/27/21 07:46 Dextrose 5%-Ns + Kcl 20 IV 100 mls/hr .Q10H REJI Administration Morphine Sulfate 2 mg 05/24/21 18:02 05/26/21 13:07 Morphine 4 Mg/Ml Sdv 1 Ml IVP 2 mg Q4H PRN Administration MILD TO MODERATE PAIN Ondansetron HCl 4 mg 05/23/21 15:45 05/23/21 17:33 Ondansetron 2 Mg /Ml Sdv 2 Ml IVP 4 mg Q6H PRN Administration NAUSEA PFSH Anesthesia PFSH: Medical History (Updated 05/23/21 @ 15:38 by Chris Ruiz MD) GERD (gastroesophageal reflux disease) HTN (hypertension) Hyperlipidemia Surgical History History of cholecystectomy History of hysterectomy History of tonsillectomy and adenoidectomy Family History (Updated 05/23/21 @ 15:29 by Chris Ruiz MD) Other Cancer Social History (Updated 05/23/21 @ 15:30 by Chris Ruiz MD) Smoking and tobacco status: never smoked Alcohol intake: never Data Anesthesia CBC & Chem 7: 05/27/21 05:35 05/27/21 05:35 Other Labs: Laboratory Results - last 48 hr 05/25/21 05/26/21 05/27/21 04:05 02:17 05:35 WBC 8.2 RBC 4.36 Hgb 12.8 Hct 40.4 MCV 92.7 MCH 29.4 MCHC 31.7 RDW 15.0 Plt Count 272 MPV 9.7 Neut % (Auto) 70.8 Lymph % (Auto) 19.2 Atlantic % (Auto) 7.3 Eos % (Auto) 0.6 Baso % (Auto) 1.0 Neut # (Auto) 5.82 Lymph # (Auto) 1.6 [place] # (Auto) 0.6 Eos # (Auto) 0.1 Baso # (Auto) 0.1 Nucleated RBC % (auto) 0 Nucleated RBCs # 0.0 Sodium 143 Potassium 4.1 Chloride 108 H Carbon Dioxide 25 Anion Gap 14.1 BUN 12 Creatinine 0.6 GFR Calculation Not Reportable Glucose 121 H Calculated Osmolality 297 H Calcium 8.1 L Magnesium 1.8 05/27/21 05:35 WBC RBC Hgb Hct MCV MCH MCHC RDW Plt Count MPV Neut % (Auto) Lymph % (Auto) Atlantic % (Auto) Eos % (Auto) Baso % (Auto) Neut # (Auto) Lymph # (Auto) Atlantic # (Auto) Eos # (Auto) Baso # (Auto) Nucleated RBC % (auto) Nucleated RBCs # Sodium 145 Potassium 3.7 Chloride 110 H Carbon Dioxide 21 L Anion Gap 17.7 BUN 11 Creatinine 0.5 GFR Calculation Not Reportable Glucose 112 Calculated Osmolality 300 H Calcium 9.4 Magnesium Cardiac Studies: Echocardiogram 05/24/21
--- NOTE | 2021-05-27 10:51 | P.CONIM_ITS ---
Providers/Reason For Consult Consulting Physician/Specialty*: General Surgery Dr. Hendricks Reason for Consult*: PEG tube placement Attending Physician: Chris Ruiz MD History of Present Illness History of Present Illness Darian Faith is a 80 year old female who presented to the ER on 05/23/2021 with right-sided weakness and was noted to have CVA. Patient is awake, alert and communicates well but is unable to swallow and weak on the right side. Patient has never had gastric surgery before but she did have a laparotomy for complications after cholecystectomy. Review of Systems General: Reports: 10 or more systems reviewed and unremarkable except in HPI and below Medications/Allergies Home Medications Medication Instructions Recorded Confirmed Last Taken Type Vitamin D3 1 cap PO DAILY 05/23/21 05/23/21 Unknown History ibuprofen 600 mg PO Q8H PRN 05/23/21 05/23/21 Unknown History lisinopril-hydrochlorothiazide 1 tab PO QAM 05/23/21 05/23/21 Unknown History metoprolol succinate 100 mg PO QAM 05/23/21 05/23/21 Unknown History omeprazole 40 mg PO QAM 05/23/21 05/23/21 Unknown History pravastatin 80 mg PO QAM 05/23/21 05/23/21 Unknown History Allergies Allergy/AdvReac Type Severity Reaction Status Date / Time No Known Allergies Allergy Verified 05/23/21 15:58 Current Medications Generic Name Dose Route Start Last Admin Trade Name Freq PRN Reason Stop Dose Admin Acetaminophen 650 mg 05/23/21 17:04 05/24/21 01:51 Acetaminophen 325 Mg Tablet PO 650 mg Q6H PRN Administration pain or fever Albuterol/Ipratropium 3 ml 05/24/21 07:45 05/27/21 07:41 Ipratropium-Albuterol 3 Ml Neb INHALATION 3 ml Q4H PRN Administration SHORTNESS OF BREATH Aspirin 81 mg 05/24/21 09:00 05/27/21 07:46 Aspirin 81 Mg Ec Tablet PO Not Given DAILY REJI Aspirin 300 mg 05/25/21 11:10 05/27/21 07:46 Aspirin 300 Mg Supp CA Not Given DAILY REJI Atorvastatin Calcium 80 mg 05/24/21 09:00 05/27/21 07:46 Atorvastatin 40 Mg Tablet PO Not Given DAILY REJI Clopidogrel Bisulfate 75 mg 05/24/21 09:00 05/27/21 07:46 Clopidogrel 75 Mg Tablet PO Not Given DAILY REJI Enoxaparin Sodium 40 mg 05/23/21 16:59 05/26/21 18:10 Enoxaparin 40 Mg/0.4 Ml Syringe SUBCUT 40 mg Q24H REJI Administration Hydralazine HCl 10 mg 05/26/21 13:35 05/27/21 00:01 Hydralazine 20 Mg/Ml Inj 1 Ml IVP 10 mg Q4H PRN Administration HYPERTENSION Potassium Chloride/Dextrose/Sod Cl 20 meq in 1,000 mls @ 100 mls/hr 05/25/21 11:15 05/27/21 07:46 Dextrose 5%-Ns + Kcl 20 IV 100 mls/hr .Q10H REJI Administration Morphine Sulfate 2 mg 05/24/21 18:02 05/26/21 13:07 Morphine 4 Mg/Ml Sdv 1 Ml IVP 2 mg Q4H PRN Administration MILD TO MODERATE PAIN Ondansetron HCl 4 mg 05/23/21 15:45 05/23/21 17:33 Ondansetron 2 Mg/Ml Sdv 2 Ml IVP 4 mg Q6H PRN Administration NAUSEA PFSH Acute PFSH: Medical History GERD (gastroesophageal reflux disease) HTN (hypertension) Hyperlipidemia Surgical History History of cholecystectomy History of hysterectomy History of tonsillectomy and adenoidectomy Family History Other Cancer Social History Smoking and tobacco status: never smoked Alcohol intake: never Vitals/I&O/Wt Last Vital Signs Temp 98 F 05/27/21 10:40 Pulse 94 05/27/21 10:40 Resp 16 05/27/21 10:40 BP 224/112 05/27/21 10:40 Pulse Ox 95 05/27/21 10:40 05/26/21 05/27/21 05/27/21 22:59 06:59 14:59 Intake Total 1979 Output Total 100 / 100 Balance 980 / 1880 900 / 1880 Physical Exam Narrative: EXAM NARRATIVE: HEENT: Normocephalic Eye: Sclera /conjunctiva normal Abdomen: Soft to palpation Neurological: Oriented to place person and time Skin: Intact, no lesions appreciated on gross exam A&P Assessment and plan (1) Cerebrovascular accident: 80-year-old female with CVA resulting in right hemiparesis and dysphagia who requires enteral access for nutrition. Plan for PEG tube placement under MAC today Procedure, risks, benefits and alternatives have been discussed with the patient who wishes to proceed with surgery. Status: Acute Qualifiers: CVA mechanism: occlusion Laterality of affected vessel: right Precerebral and cerebral artery: vertebral artery Qualified Code(s): I63.211 - Cerebral infarction due to unspecified occlusion or stenosis of right vertebral artery Consult Attestations Medical Necessity Statement: As per attending physician Coding Level of Care Code Acute Gut Carrier for [facility] Diagnoses Cerebrovascular accident I63.211 CVA mechanism: occlusion Laterality of affected vessel: right Precerebral and cerebral artery: vertebral artery
[2021-05-27] MEDS: sodium chloride 0.9% 1,000 ML 30 ML IV (10:58)
--- NOTE | 2021-05-27 11:44 | PC.NURSE ---
5 of lidocaine used
--- NOTE | 2021-05-27 11:44 | PC.NURSE ---
clip placed in body of stomach where polyp was removed
--- NOTE | 2021-05-27 11:51 | PC.OT ---
OT TREATMENT HELD TODAY DUE TO PATIENT SURGERY. WILL ATTEMPT AGAIN TOMORROW.
--- NOTE | 2021-05-27 11:53 | P.OP_ITS ---
Operative Report Date of procedure: May 27, 2021 Pre-op Diagnosis: CVA with dysphagia Post-op Diagnosis: CVA with dysphasia 2.5 cm pedunculated polyp in the body of the stomach Procedure Done: 1. Percutaneous endoscopic placement of 20 [employer] EndoVive gastrostomy tube 2. EGD with removal of 2.5 cm polyp using a hot snare Pathology: none sent Surgeon: Chad Hendricks Anesthesia: MAC Condition: stable Disposition: PACU Procedure: The patient was taken to the Operating Room and was placed under monitored anesthesia care after antibiotic had been administered. A bite block was placed and gastroscope was introduced and advanced up to the stomach and the first portion of the duodenum. There were no abnormalities noted in the esophagus and duodenum but there was small amount of blood in the stomach with a large 2.5 cm polyp in the body of the stomach which is the most likely source of the bleeding. The site for the planned PEG was confirmed in the left upper quadrant with transillumination using gastroscope noted through the abdominal wall and indentation of the abdominal wall noted on the gastroscope. This site was marked, and total of 5 milliliters of 1% lidocaine was infiltrated. An 11- blade was used to make a stab incision. An introducer needle was passed through the abdominal wall into the gastric lumen and the needle removed and the needle removed and the sheath left behind. A guidewire was passed through the introducer needle into the gastric lumen and grasped with a snare attached to the gastroscope. The gastroscope was withdrawn along with the guidewire, which was attached to the 20[employer] EndoVive PEG tube. The guidewire was then pulled through the abdominal wall along with the PEG through the mouth into the gastric lumen until the inner disc was noted to stand against the gastric wall. The gastroscope was reintroduced to confirm good position. The outer disc was then attached and the two way valve was fixed to the PEG tube. The outer disc was noted to be at 5 centimeters at the skin level. The gastroscope was introduced again and the polyp in the body of the stomach was excised using hot snare. The mucosal defect was closed with Resolution clip and the polyp was retrieved using a foreign body retrieval bag. The patient was stable throughout the procedure.
--- NOTE | 2021-05-27 13:28 | P.PN_ITS ---
Subjective Subjective: Interval history: No complaints when I saw her this morning. Has now gone for PEG tube placement and this is complete. Gastric polyp was noted which was removed. Family reports she has been urinating frequently and would like her urine checked. Medications: Reviewed: Yes Vitals/I&O/Wt Last Vital Signs Temp 98 F 05/27/21 10:40 Pulse 89 05/27/21 12:00 Resp 16 05/27/21 12:00 BP 144/61 05/27/21 12:00 Pulse Ox 98 05/27/21 12:00 05/26/21 05/27/21 05/27/21 22:59 06:59 14:59 Intake Total 980 / 980 1000 / 1980 Output Total 100 / 100 Balance 980 / 980 900 / 1880 Physical Exam Narrative: EXAM NARRATIVE: General exam, no distress, Neck is supple Cardiovascular regular rate and rhythm without murmur, no S3 or S4 Lungs clear no wheezing or crackles Abdomen is soft with positive bowel sounds. No obvious organomegaly Extremities no cyanosis clubbing or edema, cap refill brisk Neuro: Suspected visual field defect. Cerebellar dysfunction noted right upper and lower extremities. No weakness is noted. Again unchanged. No changes Data : 05/27/21 05:35 05/27/21 05:35 A&P Assessment and plan (1) Cerebrovascular accident: Significant cerebellar CVA Not candidate for intervention per David Plavix, aspirin, statin PT/OT/ ST consultations PEG tube placed today Echocardiogram demonstrated EF of 63%, 3/4 diastolic dysfunction Telemetry shows no evidence of arrhythmia Initiate trophic feeds today Status: Acute Qualifiers: CVA mechanism: occlusion Laterality of affected vessel: right Precerebral and cerebral artery: vertebral artery Qualified Code(s): I63.211 - Cerebral infarction due to unspecified occlusion or stenosis of right vertebral artery (2) Hyperlipidemia: High-dose statin Status: Acute (3) HTN (hypertension): Permissive hypertension allowed for the first 48 hours For systolic blood pressure greater than 200, diastolic greater than 100 hydralazine will be used at this point and will start regular meds when PEG is established. Initiate low-dose ARB today Status: Acute (4) GERD (gastroesophageal reflux disease): Pepcid for GI prophylaxis Status: Acute Additional A&P Information Mild hypokalemia. Normal today Polyuria. Will check urinalysis. Full code DVT prophylaxis with Lovenox Attestations Medical Necessity Statement*: Needs continued hospitalization secondary to CVA, cerebellar with inability to swallow. Coding Level of Care Code Acute Emergency Communications Operator for [facility] Diagnoses Cerebrovascular accident I63.211 CVA mechanism: occlusion Laterality of affected vessel: right Precerebral and cerebral artery: vertebral artery Hyperlipidemia E78.5 HTN (hypertension) I10 GERD (gastroesophageal reflux disease) K21.9
--- NOTE | 2021-05-27 14:46 | ANE.PACU2 ---
Inpatient post-anesthesia follow up: Airway intact: Yes Vital signs: Temperature 98 F Pulse Rate 89 Respiratory Rate 16 Blood Pressure 144/61 Pulse Oximetry 98 Oxygen Delivery Me thod Nasal Cannula Oxygen Flow Rate 3 Fraction of Inspir ed Oxygen 2 Hydration adequate: Yes Nausea and vomiting: No Pain level: 2 Mental status: Baseline
--- NOTE | 2021-05-27 15:44 | PC.NUTR ---
PEG tube placed 05/27 and TF consult received 05/27 @ 15:10. Recommend Jevity 1.2 starting and running continuously at 10 mls/hr, advancing 10 mls/hr Q8H as tolerated until goal rate of 25 mls/hr is reached, with FW flushes per MD discretion - this will be in addition to 408 kcals from D5W @ 100 mls/hr. Detail in RD assessment.
[2021-05-27] MEDS: enoxaparin 40 mg/0.4 mL Syringe SUBCUT (16:26)
--- NOTE | 2021-05-27 19:45 | PC.NURSE ---
hift report received from Viri HELMS. Patient awake in bed/denies pain. No s/s of pain or discomfort. IV patent infusing NS20K at 100mL/hr. No needs voiced at this time.
[2021-05-27 20:16] LABS: Bacteria Urine TRACE /hpf; Bilirubin Urine Neg (Negative); Blood Urine 2+ (Negative); Glucose Urine UA Norm (Normal); Ketones Urine Negative (Negative); Leukocyte Esterase Urine Negative (Negative); Nitrate Urine Negative (Negative); Protein Urine Neg (Negative); RBC Urine 0-4 /hpf (0-2); Specific Gravity, Urine 1.005 (1.005-1.030); Squamous Epithelial Cell Urine 0-4 /hpf (0-5); Urine Appearance Clear (CLEAR); Urine Color Yellow (Yellow); Urobilinogen Urine Norm (Negative); WBC Urine 0-4 /hpf (0-5); pH Urine 7 (5-7)
[2021-05-28] VITALS (10 sets, daily range): BP systolic 102–205; BP diastolic 58–83; PULSE 76–101; RESP 15–18; TEMP 36.7–37.3; O2SAT 92–96
[2021-05-28] MEDS: dextrose 5%-ns + KCl 20 20 MEQ/1,000 ML BAG 100 MEQ IV (00:52)
[2021-05-28] MEDS: hyDRALAzine 20 mg/mL INJ 1 mL 10 MG IVP ×2 (03:50→21:30)
[2021-05-28] MEDS: aspirin 81 mg EC Tablet PO (08:49)
[2021-05-28] MEDS: losartan 50 mg Tablet 25 MG PEG-TUBE (08:49)
[2021-05-28] MEDS: atorvastatin 40 mg Tablet 80 MG PO (08:49)
[2021-05-28] MEDS: clopidogrel 75 mg Tablet PO (08:49)
[2021-05-28] MEDS: metoprolol tartrate 25 mg Tablet 12.5 MG PEG-TUBE ×2 (08:59→21:47)
--- NOTE | 2021-05-28 09:26 | PM.PN ---
Documented by User: GREGORY Lopez STDNT 05/28/21 09:53 Subjective Subjective: Interval history: Darian states she still feels dizzy and off balance when she stands up to use her bedside commode. She is still urinating frequently but she endorses doing that at home as well. Vitals/I&O/Wt Last Vital Signs Temp 99.2 F 05/28/21 07:58 Pulse 84 05/28/21 07:58 Resp 15 05/28/21 07:58 BP 197/83 05/28/21 08:49 Pulse Ox 95 05/28/21 07:58 05/27/21 05/28/21 05/28/21 22:59 06:59 14:59 Intake Total 1000 / 1200 Output Total 940 / 940 Balance 1000 / 1200 -940 / 260 Physical Exam Narrative: EXAM NARRATIVE: General: in no acute distress, able to move all extremities without difficulty HEENT: normocephalic, atraumatic, pupils equally round Neck: supple, no thyromegaly, no lymphadenopathy Cardiovascular: RRR without murmurs Lungs: clear bilaterally, no wheezes Abdomen: soft, nontender, positive bowel sounds Extremities: no cyanosis, clubbing, or edema Skin: no rash Neuro: suspected visual field deficit. Cerebellar dysfunction noted on right upper and lower extremities. No weakness noted. Data : 05/27/21 05:35 05/27/21 05:35 Other Labs: UA demonstrated 2+ blood, 0-4 RBC, 0-4 WBC, 0-4 SEC, trace urine bacteria A&P Assessment and plan (1) Cerebrovascular accident: Status: Acute Qualifiers: CVA mechanism: occlusion Laterality of affected vessel: right Precerebral and cerebral artery: vertebral artery Qualified Code(s): I63.211 - Cerebral infarction due to unspecified occlusion or stenosis of right vertebral artery (2) Hyperlipidemia: Status: Acute (3) HTN (hypertension): Status: Acute (4) GERD (gastroesophageal reflux disease): Status: Acute Plan (1) Cerebrovascular accident: ? ? ? Significant cerebellar CVA Not candidate for intervention per David Plavix, aspirin, statin PT/OT/ST consultations PEG tube placed yesterday Echocardiogram demonstrated EF of 63%, 3/4 diastolic dysfunction Telemetry shows no evidence of arrhythmia Initiate tube feed diet today ?Status:?Acute ?Qualifiers: ?CVA mechanism:?occlusion??Laterality of affected vessel:?right??Precerebral and cerebral artery:?vertebral artery? Qualified Code(s):?I63.211 - Cerebral infarction due to unspecified occlusion or stenosis of right vertebral artery (2) Hyperlipidemia: ? ? ? High-dose statin ?Status:?Acute (3) HTN (hypertension): ? ? ? Permissive hypertension allowed for the first 48 hours For systolic blood pressure greater than 200, diastolic greater than 100, hydralazine can be used PRN. Continue low-dose ARB Initiate low-dose metoprolol today ?Status:?Acute (4) GERD (gastroesophageal reflux disease): ? ? ? Pepcid for GI prophylaxis ?Status:?Acute Additional A&P Information Polyuria. UA checked and demonstrated no obvious signs of infection Full code DVT prophylaxis with Lovenox Coding Level of Care Code Acute Barrel Loader And Cleaner for Chg Fwd Diagnoses Cerebrovascular accident I63.211 CVA mechanism: occlusion Laterality of affected vessel: right Precerebral and cerebral artery: vertebral artery Hyperlipidemia E78.5 HTN (hypertension) I10 GERD (gastroesophageal reflux disease) K21.9 Documented by User: Chris Ruiz MD 05/28/21 12:31 Subjective Subjective: Interval history: Darian states she still feels dizzy and off balance when she stands up to use her bedside commode. She is still urinating frequently but she endorses doing that at home as well. Agree with above. No issues overnight. Medications: Reviewed: Yes Physical Exam Narrative: EXAM NARRATIVE: General: in no acute distress, able to move all extremities without difficulty HEENT: normocephalic, atraumatic, pupils equally round Neck: supple, no thyromegaly, no lymphadenopathy Cardiovascular: RRR without murmurs Lungs: clear bilaterally, no wheezes Abdomen: soft, nontender, positive bowel sounds Extremities: no cyanosis, clubbing, or edema Skin: no rash Neuro: suspected visual field deficit. Cerebellar dysfunction noted on right upper and lower extremities. No weakness noted. I examined the patient as well. PEG tube is in place. No significant drainage from wound. Data : 05/27/21 05:35 05/27/21 05:35 A&P Assessment and plan (1) Cerebrovascular accident: Status: Acute Qualifiers: CVA mechanism: occlusion Laterality of affected vessel: right Precerebral and cerebral artery: vertebral artery Qualified Code(s): I63.211 - Cerebral infarction due to unspecified occlusion or stenosis of right vertebral artery (2) Hyperlipidemia: Status: Acute (3) HTN (hypertension): Status: Acute (4) GERD (gastroesophageal reflux disease): Status: Acute Plan (1) Cerebrovascular accident: ? ? ? Significant cerebellar CVA Not candidate for intervention per David Plavix, aspirin, statin PT/OT/ST consultations PEG tube placed yesterday Echocardiogram demonstrated EF of 63%, 3/4 diastolic dysfunction Telemetry shows no evidence of arrhythmia Initiate tube feed diet today ?Status:?Acute ?Qualifiers: ?CVA mechanism:?occlusion??Laterality of affected vessel:?right??Precerebral and cerebral artery:?vertebral artery? Qualified Code(s):?I63.211 - Cerebral infarction due to unspecified occlusion or stenosis of right vertebral artery (2) Hyperlipidemia: ? ? ? High-dose statin ?Status:?Acute (3) HTN (hypertension): ? ? ? Permissive hypertension allowed for the first 48 hours For systolic blood pressure greater than 200, diastolic greater than 100, hydralazine can be used PRN. Continue low-dose ARB Initiate low-dose metoprolol today ?Status:?Acute (4) GERD (gastroesophageal reflux disease): ? ? ? Pepcid for GI prophylaxis ?Status:?Acute Additional A&P Information Polyuria. UA checked and demonstrated no obvious signs of infection Full code DVT prophylaxis with Lovenox Agree with above. No changes needed. Attestations Medical Necessity Statement*: Needs continued hospitalization, for close follow-up after stroke requiring PEG tube placement. Hopefully discharge tomorrow. Coding Level of Care Code Acute Barrel Loader And Cleaner for [facility] Diagnoses Cerebrovascular accident I63.211 CVA mechanism: occlusion Laterality of affected vessel: right Precerebral and cerebral artery: vertebral artery Hyperlipidemia E78.5 HTN (hypertension) I10 GERD (gastroesophageal reflux disease) K21.9
--- NOTE | 2021-05-28 10:56 | PC.SOCIAL ---
IMM Update pg 2 of IMM updated and reviewed w/ patient. Copy provided. Copy in chart signed and dated.
[2021-05-28] MEDS: dextrose 5%-ns + KCl 20 20 MEQ/1,000 ML BAG 50 MEQ IV (11:32)
--- NOTE | 2021-05-28 16:08 | PM.PN ---
Subjective Subjective: Interval history: Patient is awake, denies significant pain, tolerating tube feeds at 10 cc/h Vitals/I&O/Wt Last Vital Signs Temp 98.0 F 05/28/21 15:51 Pulse 81 05/28/21 15:51 Resp 18 05/28/21 15:51 BP 198/72 05/28/21 15:51 Pulse Ox 94 05/28/21 15:51 05/28/21 05/28/21 05/28/21 06:59 14:59 22:59 Intake Total 1010 / 1010 Output Total 940 / 940 Balance -940 / 260 1010 / 1010 Physical Exam Narrative: EXAM NARRATIVE: Abdomen: Soft, nondistended, tender mildly around the PEG tube in the left upper quadrant. No cellulitis or hematoma. Data : 05/27/21 05:35 05/27/21 05:35 A&P Assessment and plan (1) S/P percutaneous endoscopic gastrostomy (PEG) tube placement: 80-year-old female status post CVA status post PEG tube placement doing well Increase tube feeds later today by 10 cc every 8 hours to goal After 7 to 10 days patient can be transitioned to bolus tube feeds Status: Acute Attestations Medical Necessity Statement*: As per prior MRI Coding Level of Care Code Acute Veterinary Medicine Doctor for Chg Fwd Diagnoses S/P percutaneous endoscopic gastrostomy (PEG) tube placement Z93.1
[2021-05-28] MEDS: enoxaparin 40 mg/0.4 mL Syringe SUBCUT (16:16)
--- NOTE | 2021-05-28 18:10 | PC.NURSE ---
Patient is on tube feeding. Patient was increased to 20mls an hour.
--- NOTE | 2021-05-28 23:49 | PC.NURSE ---
FEEDING Feeding increased to 25ml/hr
[2021-05-29] VITALS (12 sets, daily range): BP systolic 175–217; BP diastolic 64–82; PULSE 64–87; RESP 15–18; TEMP 36.6–37.1; O2SAT 94–96
--- NOTE | 2021-05-29 06:04 | PC.NURSE ---
SHIFT SUMMARY Has done well tonight. Is oriented with questioning and answers appropriately but still needs some direction as to how to do things. Will ask what she needs to do now or will ask which way she needs to go when getting to [facility] and if she should sit now. Uses call light every time she needs to get up. Bed alarm on for pt safety. Has some occ balance problems and does not see well with peripheral vision. Spits oral secretions out into tissues and says she still cannot swallow. PEG tube to L abdomen with Jevity 1.2 feeding per pump. Rate has been increased up to goal of 25ml/hr. Water flush 120ml/4 hrs. Has no c/o pain. IV infusing at 50ml/hr rate
[2021-05-29 06:35] LABS: Blood Urea Nitrogen 8 mg/dL (8-23); Calcium 9.1 mg/dL (8.5-10.5); Carbon Dioxide 22 mmol/L (22-29); Chloride 109 mmol/L (98-107); Creatinine Clr Calc Pharmacy 62.0012; Glucose 122 mg/dL (65-115); Osmolality Calculated 296 mOsm/kg (285-295); Sodium 143 mmol/L (136-145)
[2021-05-29 06:41] LABS: Anion Gap 15.4 (5-19); Potassium 3.4 mmol/L (3.5-5.1)
--- NOTE | 2021-05-29 09:20 | PC.NUTR ---
PEG tube placed 05/27 and second TF consult received 05/28, but requested without fluid/kcals from D5W. Recommend Jevity 1.2 starting at 10 mls/hr, advancing 10 mls/hr Q8H as tolerated til goal rate of 40 mls/hr is reached, with FW flushes 100 mls Q4H. TF will provide 1152 kcals or 78% of PT's estimated calorie needs and 53 grams protein or 104% Pt's estimated protein needs, and 775 mls + 600 mls for flushes = 1375 mls or 93% Pt's estimated fluid intake.
[2021-05-29] MEDS: atorvastatin 40 mg Tablet 80 MG PO (09:55)
[2021-05-29] MEDS: metoprolol tartrate 25 mg Tablet 12.5 MG PEG-TUBE ×2 (09:56→21:22)
[2021-05-29] MEDS: losartan 50 mg Tablet 25 MG PEG-TUBE (09:57)
[2021-05-29] MEDS: aspirin 81 mg EC Tablet PO (09:58)
[2021-05-29] MEDS: clopidogrel 75 mg Tablet PO (09:59)
[2021-05-29] MEDS: dextrose 5%-ns + KCl 20 20 MEQ/1,000 ML BAG 50 MEQ IV (10:08)
[2021-05-29] MEDS: potassium chloride oral liq 20 mEq/15 mL UDC 40 MEQ PO (10:39)
--- NOTE | 2021-05-29 12:28 | PC.NURSE ---
Patients IV went bad at 1100. Dr. Ruiz okayed to keep IV out.
--- NOTE | 2021-05-29 14:31 | PM.PN ---
Subjective Subjective: Interval history: Omid reports she is doing okay. She is tolerating her tube feeds. Medications: Reviewed: Yes Vitals/I&O/Wt Last Vital Signs Temp 98.1 F 05/29/21 14:19 Pulse 66 05/29/21 14:19 Resp 16 05/29/21 14:19 BP 175/78 05/29/21 14:19 Pulse Ox 94 05/29/21 14:19 05/28/21 05/29/21 05/29/21 22:59 06:59 14:59 Intake Total 610 / 1620 1000 / 1000 Output Total 225 / 225 350 / 575 Balance -225 / 785 260 / 1045 1000 / 1000 Physical Exam Narrative: EXAM NARRATIVE: General: No distress Neck: supple, no thyromegaly, no lymphadenopathy Cardiovascular: RRR without murmurs Lungs: clear bilaterally, no wheezes Abdomen: soft, nontender, positive bowel sounds. PEG tube noted Extremities: no cyanosis, clubbing, or edema Neuro exam unchanged Data : 05/27/21 05:35 05/29/21 05:24 A&P Assessment and plan (1) Cerebrovascular accident: Continue Plavix and aspirin Consider event monitor on discharge. No arrhythmia in house. Will need rehabilitation Has affected her ability to swallow greatly. Tube feeds initiated. Status: Acute Qualifiers: CVA mechanism: occlusion Laterality of affected vessel: right Precerebral and cerebral artery: vertebral artery Qualified Code(s): I63.211 - Cerebral infarction due to unspecified occlusion or stenosis of right vertebral artery (2) Hyperlipidemia: Continue high-dose statin Status: Acute (3) HTN (hypertension): Stable currently Status: Acute (4) GERD (gastroesophageal reflux disease): Continue Pepcid. Stable. Status: Acute Plan Additional A&P Information Polyuria. UA checked and demonstrated no obvious signs of infection Full code DVT prophylaxis with Lovenox Attestations Medical Necessity Statement*: Needs continued hospitalization for therapy secondary to severe stroke, with adjustment of tube feedings prior to discharge to make sure tolerance is achieved. Coding Level of Care Code Acute Bending Press Operator for g Fwd Diagnoses Cerebrovascular accident I63.211 CVA mechanism: occlusion Laterality of affected vessel: right Precerebral and cerebral artery: vertebral artery Hyperlipidemia E78.5 HTN (hypertension) I10 GERD (gastroesophageal reflux disease) K21.9
[2021-05-29] MEDS: enoxaparin 40 mg/0.4 mL Syringe SUBCUT (16:58)
[2021-05-30] VITALS (7 sets, daily range): BP systolic 176–209; BP diastolic 69–86; PULSE 64–75; RESP 17–18; TEMP 36.4–36.9; O2SAT 95–96
[2021-05-30] MEDS: cloNIDine 0.1 mg Tablet PO (03:36)
--- NOTE | 2021-05-30 06:48 | PC.NURSE ---
SHIFT SUMMARY Has rested for intervals. Up to [facility] with assist. Does well except occ imbalance noted. Bed alarm kept on for safey. Call pad stays hooked onto pocket of gown so she can easily find it. Tube feeding has been increased to goal rate of 40ml/hr and is tolerating well. Continues to spit out oral secretions. BP was increased tonight with systolic over 200. IV was discontinued yesterday so could not give the prn Hydrolazine. Dr Crooks was called and started pt on Clonidine BID. First dose was given.
--- NOTE | 2021-05-30 08:40 | P.DS_ITS ---
Discharge Providers Date of Admission: 05/23/21 16:59 Date of Discharge: May 30, 2021 Attending Provider at Admission: Chris Ruiz MD Attending Provider at Discharge: Chris Ruiz MD Diagnoses at Discharge Discharge Diagnosis (1) Cerebrovascular accident: Status: Acute Qualifiers: CVA mechanism: occlusion Laterality of affected vessel: right Precerebral and cerebral artery: vertebral artery Qualified Code(s): I63.211 - Cerebral infarction due to unspecified occlusion or stenosis of right vertebral artery (2) Hyperlipidemia: Status: Acute (3) HTN (hypertension): Status: Acute (4) GERD (gastroesophageal reflux disease): Status: Acute Reason for Visit Reason for Visit: STROKE SYMPTOMS Hospital Course Hospital Course Mrs. Faith is a 80-year-old white female who presented to the hospital with right-sided weakness, with cerebellar dysfunction and right facial droop. She also had significant difficulty swallowing. Patient was not a candidate for TPA. She was not a candidate for thrombectomy. She was evaluated by [facility] per the emergency department physician. She was placed in the hospital, with orders for Plavix, aspirin, high-dose statin. She was hydrated. Telemetry was ordered and she had no evidence of arrhythmia while in the hospital and EKG did not suggest arrhythmia. Echocardiogram demonstrated preserved EF, 3/4 diastolic dysfunction, no obvious thrombus. 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 MRI demonstrated infarct right posterior circulation involving right cerebellum, medial right occipital lobe, small portion of medulla oblongata. Patient was not able to swallow effectively during her hospital stay despite therapy consultations. A PEG tube was placed, feedings increased which she tolerated well. She will discharge today to custodial facility for continued rehabilitation. Physical Exam Narrative: EXAM NARRATIVE: General exam no distress, speech good Neck is supple Cardiovascular regular rate and rhythm without murmur Lungs clear Abdomen is soft, PEG tube noted Extremities no cyanosis clubbing or edema Neurologic: Cerebellar dysfunction right upper and right lower extremity. Unable to swallow effectively. Discharge Data Studies Completed and Pending Completed Studies During Hospitalization Category Date Time Status CT angio headneck* [id number] Stat Cat Scan 05/23/21 10:[address] head wo con* [id number] Stat Cat Scan 05/23/21 08:39 Completed XR chest 1V portable [id number] Stat Exams 05/23/21 08:39 Completed XR knee RT 4V [id number] Stat Exams 05/23/21 08:48 Completed MR head wo con* [id number] Urgent MRI 05/23/21 14:00 Completed Pathology: Surgical [PTH] Routine Pth 05/27/21 11:58 Completed CV. echo complete* [id number] Routine Ultrasound 05/24/21 06:00 Completed Pending at discharge Category Date Time Status SARS Covid-2 Antigen Stat Lab 05/30/21 08:12 Uncollected Radiology Impressions Chest X-Ray 05/23/21 08:39 IMPRESSION: 1. No acute cardiopulmonary finding. 2. Chronic interstitial changes. 3. Chronic widening of the superior mediastinum on the right. Head CT 05/23/21 08:39 IMPRESSION: 1. No acute intracranial hemorrhage or edema. 2. Mild atrophy and mild chronic ischemic disease with chronic lacunar infarcts as described above. Notified Desmondtatianna Dunaway MD at 05/23/2021 9:23 AM. Knee X-Ray 05/23/21 08:48 IMPRESSION: 1. Mild degenerative changes. 2. No fracture or joint effusion. Head/Neck CTA 05/23/21 10:26 IMPRESSION: 1. Very mild cervical carotid artery atherosclerosis. 2. Near 50% stenosis in the cavernous intracranial carotid arteries extending into the supraclinoid carotids. 3. Mild focal narrowing in the LEFT M1 segment. No complete occlusion and no thrombus identified. 4. Irregular 4 mm nodule RIGHT upper lobe. Recommend follow-up chest CT in 6 months. 5. 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 No acute thrombus. Head MRI 05/23/21 14:00 IMPRESSION: 1. Acute infarcts involving the RIGHT posterior circulation. There are acute infarcts involving the inferior RIGHT cerebellum, medial RIGHT occipital lobe and a small portion of the medulla oblongata. 2. No midline shift. Laboratory Results WBC 8.2 10^3/uL (4.0-10.0) 05/27/21 05:35 RBC 4.36 10^6/uL (4.1-5.3) 05/27/21 05:35 Hgb 12.8 g/dL (11.5-15.3) 05/27/21 05:35 Hct 40.4 % (37.0-47.0) 05/27/21 05:35 MCV 92.7 fl (81-99) 05/27/21 05:35 MCH 29.4 pg (28.0-34.0) 05/27/21 05:35 MCHC 31.7 g/dL (30.0-36.0) 05/27/21 05:35 RDW 15.0 % (12.1-15.1) 05/27/21 05:35 Plt Count 272 10^3/cmm (130-400) 05/27/21 05:35 MPV 9.7 fL (7.4-10.4) 05/27/21 05:35 Neut % (Auto) 70.8 % 05/27/21 05:35 Lymph % (Auto) 19.2 % 05/27/21 05:35 Armstrong % (Auto) 7.3 % 05/27/21 05:35 Eos % (Auto) 0.6 % 05/27/21 05:35 Baso % (Auto) 1.0 % 05/27/21 05:35 Neut # (Auto) 5.82 10^3/uL (1.8-7.7) 05/27/21 05:35 Lymph # (Auto) 1.6 10^3/uL (0.8-4.8) 05/27/21 05:35 Armstrong # (Auto) 0.6 10^3/uL (0.2-0.9) 05/27/21 05:35 Eos # (Auto) 0.1 10^3/uL (0.0-0.8) 05/27/21 05:35 Baso # (Auto) 0.1 10^3/uL (0.0-0.1) 05/27/21 05:35 Nucleated RBC % (auto) 0 % 05/27/21 05:35 Nucleated RBCs # 0.0 /100WBC 05/27/21 05:35 APTT 26.6 SECONDS (23.9-36.7) 05/23/21 08:30 Sodium 143 mmol/L (136-145) 05/29/21 05:24 Potassium 3.4 mmol/L (3.5-5.1) L 05/29/21 05:24 Chloride 109 mmol/L (98-107) H 05/29/21 05:24 Carbon Dioxide 22 mmol/L (22-29) 05/29/21 05:24 Anion Gap 15.4 (5-19) 05/29/21 05:24 BUN 8 mg/dL (8-23) 05/29/21 05:24 Creatinine 0.6 mg/dL (0.5-0.9) 05/29/21 05:24 GFR Calculation Not Reportable 05/29/21 05:24 Glucose 122 mg/dL (65-115) H 05/29/21 05:24 Estimat Average Glucose 123 05/24/21 04:48 Hemoglobin A1c 5.9 % (4.0-6.0) 05/24/21 04:48 Calculated Osmolality 296 mOsm/kg (285-295) H 05/29/21 05:24 Calcium 9.1 mg/dL (8.5-10.5) 05/29/21 05:24 Magnesium 1.8 mg/dL (1.7-2.3) 05/25/21 04:05 Total Bilirubin 0.5 mg/dL (0.15-1.2) 05/23/21 08:30 AST 32 U/L (0-32) 05/23/21 08:30 ALT 18 U/L (0-33) 05/23/21 08:30 Alkaline Phosphatase 58 IU/L (35-105) 05/23/21 08:30 Total Protein 7.4 g/dL (6.6-8.7) 05/23/21 08:30 Albumin 4.4 g/dL (3.5-5.2) 05/23/21 08:30 Globulin 3.0 g/dL (1.3-4.6) 05/23/21 08:30 Triglycerides 195 mg/dL (0-150) H 05/24/21 04:48 Cholesterol 176 mg/dL (0-200) 05/24/21 04:48 LDL Cholesterol, Calc 97 mg/dL (50-129) 05/24/21 04:48 HDL Cholesterol 40 mg/dL (60-100) L 05/24/21 04:48 LDL/HDL Ratio 2.43 RATIO (0.00-3.22) 05/24/21 04:48 Cholesterol/HDL Ratio 4.40 mg/dL (0.0-4.40) 05/24/21 04:48 TSH 2.41 uIU/mL (0.27-4.20) 05/23/21 08:30 Urine Color Yellow (Yellow) 05/27/21 19:46 Urine Appearance Clear (CLEAR) 05/27/21 19:46 Urine pH 7 (5-7) 05/27/21 19:46 Ur Specific [place] 1.005 (1.005-1.030) 05/27/21 19:46 Urine Protein Neg (Negative) 05/27/21 19:46 Urine Glucose (UA) Norm (Normal) 05/27/21 19:46 Urine Ketones Negative (Negative) 05/27/21 19:46 Urine Blood 2+ (Negative) H 05/27/21 19:46 Urine Nitrate Negative (Negative) 05/27/21 19:46 Urine Bilirubin Neg (Negative) 05/27/21 19:46 Urine Urobilinogen Norm mg/dL (Negative) 05/27/21 19:46 Ur Leukocyte Esterase Negative (Negative) 05/27/21 19:46 Urine RBC 0-4 /hpf (0-2) H 05/27/21 19:46 Urine WBC 0-4 /hpf (0-5) H 05/27/21 19:46 Ur Squamous Epith Cells 0-4 /hpf (0-5) H 05/27/21 19:46 Amorphous Sediment Not Reportable 05/27/21 19:46 Urine Bacteria Trace /hpf (NONE) 05/27/21 19:46 Coronavirus 229E (PCR) Not detected (NOT DETECT) 05/23/21 09:50 SARS-CoV-2 (PCR) Not detected (NOT DETECT) 05/23/21 09:50 Vitals Last Vital Signs Temp 97.5 F L 05/30/21 04:00 Pulse 64 05/30/21 05:52 Resp 17 05/30/21 04:00 BP 209/81 05/30/21 04:00 Pulse Ox 95 05/30/21 04:00 Discharge Plan Discharge Patient Disposition: Xfer SNF Condition: Stable Prescriptions: New clopidogrel 75 mg Tablet 75 mg PO DAILY Qty: 30 0RF atorvastatin 40 mg Tablet 80 mg PO DAILY Qty: 30 0RF aspirin 81 mg Tablet,Delayed Release (Dr/Ec) 81 mg PO DAILY Qty: 30 0RF losartan 50 mg Tablet 50 mg peg-tube DAILY Qty: 30 0RF metoprolol tartrate 25 mg Tablet 25 mg peg-tube BID@0900,2100 Qty: 60 0RF Continued omeprazole 40 mg capsule,delayed release(DR/EC) 40 mg PO QAM 0RF Vitamin D3 1 cap PO DAILY 0RF Discontinued lisinopril-hydrochlorothiazide 20-12.5 mg tablet 1 tab PO QAM 0RF metoprolol succinate 100 mg tablet extended release 24 hr 100 mg PO QAM 0RF pravastatin 80 mg tablet 80 mg PO QAM 0RF ibuprofen 200 mg Tablet 600 mg PO Q8H PRN (Reason: Pain) 0RF Discharge Orders: Discharge Order (Routine); Ordered 05/30/21 Ordered By: Chris Ruiz Other Ambulatory Orders: MCT/Event Monitor 21 Days (Routine) Timeframe: 2 Days Facility: [facility] - Location: Radiology Ordered By: Chris Ruiz Referrals: [facility] [Outside] Ashlie Newman MD [Physician] - 2 weeks Discharge Diet: Cardiac Discharge Activity: Increase activity as tolerated Patient Instructions: GI Discharge Instructions Activity Restrictions/Additional Instructions: Take all medicine as prescribed Plavix should be continued at least 3 weeks, then consideration for discontinuing and increasing aspirin to 325 mg. Neurology consult to be obtained in 2 weeks that will direct this. Event monitor on discharge Follow-up with physician at [facility] within the next 3 to 5 days. PEG tube diet is Jevity 1.2, 40 mils an hour with free water flushes of 100 every 4 hours. This could be moved to bolus feedings in 1 week per general surgery. Discharge Attestations Time Spent in Discharge Care*: greater than 30 min Quality Metrics Clinical Quality Measures [ Cerebrovascular Accident { Contraindication to Antithrombotic: None; antithrombotic prescribed; Contraindication to Anticoagulation: Other (no indicated); Contraindication to Statin: None; Statiin prescribed; Reason stroke education not provided: Stroke education provided to patient;}] Coding Level of Care Code Acute Chg FW DC note Diagnoses Cerebrovascular accident I63.211 CVA mechanism: occlusion Laterality of affected vessel: right Precerebral and cerebral artery: vertebral artery Hyperlipidemia E78.5 HTN (hypertension) I10 GERD (gastroesophageal reflux disease) K21.9
[2021-05-30] MEDS: acetaminophen 325 mg Tablet 650 MG PO (08:51)
[2021-05-30] MEDS: losartan 50 mg Tablet PEG-TUBE (08:52)
[2021-05-30] MEDS: metoprolol tartrate 25 mg Tablet PEG-TUBE (08:52)
[2021-05-30] MEDS: aspirin 81 mg EC Tablet PO (08:53)
[2021-05-30] MEDS: atorvastatin 40 mg Tablet 80 MG PO (08:53)
[2021-05-30] MEDS: clopidogrel 75 mg Tablet PO (08:53)
--- NOTE | 2021-05-30 10:23 | PC.SOCIAL ---
IMM Update Pg. 2 of IMM updated and reviewed with patient, copy provided.
--- NOTE | 2021-05-30 10:46 | PC.NURSE ---
report called to Ghada at [facility].
[2021-05-30 12:08] LABS: SARS Covid-2 Antigen Negative (Negative)
== END 2021-05-30 14:00 | disposition skilled nursing facility (03) | DRG 65 ==
LOC: ER 15:48 → MEDSURG 19:31
PROVIDERS: Surgery; Admitting Provider Internal Medicine; Emergency Provider Family Medicine; Visit Provider Internal Medicine
PROC: 0DJ08ZZ Inspection of Upper Intestinal Tract, Via Natural or Artificial Opening Endoscopic (ICD-10-PCS; CPT 43235; principal; 2021-05-27 11:30)
PROC: 0DH63UZ Insertion of Feeding Device into Stomach, Percutaneous Approach (ICD-10-PCS; CPT 43246; 2021-05-27 11:30)
DX: I63.211 Cerebral infarction due to unspecified occlusion or stenosis of right vertebral artery (principal); G81.91 Hemiplegia, unspecified affecting right dominant side; R27.0 Ataxia, unspecified; R47.1 Dysarthria and anarthria; R29.810 Facial weakness; R29.708 NIHSS score 8; R13.10 Dysphagia, unspecified; K21.9 Gastro-esophageal reflux disease without esophagitis; I10 Essential (primary) hypertension; E78.5 Hyperlipidemia, unspecified; E87.6 Hypokalemia; K31.7 Polyp of stomach and duodenum; R35.0 Frequency of micturition
CPT/HCPCS: 36415; 43246; 43251; 70450; 70496; 70498; 70551; 71045; 73564; 80048; 80053; 80061; 81001; 83036; 83735; 84443; 85025; 85730; 87426; 87635; 88305; 88342; 92507; 92523; 92526; 92610; 93005; 93306; 94640; 96365; 96366; 96372; 96375; 96376; 97110; 97116; 97161; 97165; 97530; 99285; J0360; J1650; J2270; J2405; J2550; J2704; J3480; J3490; J7030; Q9967

== ENCOUNTER 2021-06-06 08:22 | Day surgery (SDC) | payer MEDICARE, SELFPAY ==
[2021-06-06 08:28] VITALS: BP 220/78; PULSE 80; RESP 18; TEMP 36.6; O2SAT 95
--- NOTE | 2021-06-06 08:31 | XR_ITS ---
WS: [id number] XR KUB [id number] REASON FOR EXAM: PULLED PEG TUBE FINDINGS: Contrast was injected through the presumed gastrostomy tube. There is an amorphous collection of cont rast at the distal end of the tube. Contrast within the stomach not identified. XR/XR KUB [id number] IMPRESSION: Examination does not establish the location of the gastrostomy tube within the stomach. Would recommend plain film of the abdomen follow-up as soon as possibl e with no further contrast injection to see if there is any change in the confi guration of the contrast.
--- NOTE | 2021-06-06 08:45 | ED_ITS ---
HPI - General Adult General: Chief complaint: General Medical Stated complaint: PULLED PEG TUBE Time Seen by Provider: 06/06/21 08:25 History of Present Illness: Male arrives via EMS from the long term. She recently had a stroke on May 27 of this year she had a PEG tube placed. The tube has a semirigid flange on the gastric side and was dislodged this morning. They are getting bloody serous drainage from it as well as some clots in the tube. On arrival here she has some mild abdominal wall discomfort. Incision site itself looks good there is no drainage is not reporting any fever she not had any vomiting. He was placed because she recently had a stroke and had dys phagia. Onset (ago): minute(s) Location: abdomen Severity: mild Quality: burning Pain Consistency: intermittent Relieving factors: none Exacerbating factors: none Associated symptoms: Reports confusion (Baseline); Deny chest pain, cough, diaphoresis, decreased appetite, dyspnea, fevers/chills, headache(s), malaise, nausea, rash, palpitations, seizures, short of breath, s yncope, vomiting or weakness Treatments prior to arrival: none Review of Systems Const: Denies: malaise or diaphoresis Card: Denies: chest pain, palpitations or syncope Resp: Denies: dyspnea GI: Denies: nausea or vomiting Skin/Breast: Denies: rash Neuro: Reports: confusion (Baseline); Denies: headache(s) [facility] ED PFSH: Medical History Cerebrovascular accident GERD (gastroesophageal reflux disease) HTN (hypertension) Hyperlipidemia Surgical History History of cholecystectomy History of hysterectomy History of tonsillectomy and adenoidectomy S/P percutaneous endoscopic gastrostomy (PEG) tube placement (05/27/21) Family History Other Cancer Social History Smoking and tobacco status: never smoked Alcohol intake: never Physical Exam Const: COMMON NORMALS: no acute distress GENERAL APPEARANCE: cooperative and comfortable ORIENTATION/CONSCIOUSNESS: Yes awake HENMT: COMMON NORMALS: normocephalic, atraumatic and hearing grossly normal bilaterally HEAD & SCALP: normocephalic and atraumatic Neck/C-Spine: COMMON NORMALS: no JVD Resp: COMMON NORMALS: normal respiratory effort, No retractions, No use of accessory muscles and clear to auscultation bilaterally AUSCULTATION: clear to auscultation bilaterally Cardio: COMMON NORMALS: no JVD, regular rate, regular rhythm and No murmurs present (Cardio) RATE: regular rate RHYTHM: regular rhythm GI: COMMON NORMALS: Soft to palpation and No hepatosplenomegaly present AUSCULTATION: Yes normoactive bowel sounds PALPATION: Yes Soft to palpation, No Tenderness to palpation present (GI), No Guarding due to palpation present (GI) and Yes No hepatosplenomegaly present OTHER: Examination the abdominal wall and the left upper quadrant there is a PEG tube. Initially the tube has serosanguineous fluid in it as well as some clots. There is a side-port to the tube as well but it does not deflate the bulb. Initially tried to withdraw air or fluid through the tube the tube collapses keeping negative pressure on the tube we milked the tube to remove the majority of the clots. I then infiltrated with approximately 40 to 50 mL of sterile water. This caused some discomfort for the patient and leaking of sterile water around the incision site for the tube. After which there was a palpable nodule superior and slightly medial to the incision site for the tube. I then infiltrated with approximately 25 mL of Gastrografin and took an x-ray. The tu be is radiopaque and there is a radiopaque collection that is appears to be in the abdominal wall there is no evidence of Gastrografin highlighting stomach rugae or draining into the duodenum. Extremity: COMMON NORMALS: normal to inspection, capillary refill normal, no clubbing, cyanosis or edema, no calf tenderness and no pedal edema Skin: COMMON NORMALS: no rashes or lesions noted GENERAL SKIN EXAM: no rashes or lesions noted Course Vital Signs: Vital signs: Vital Signs Temperature 97.9 F 06/06/21 08:28 Pulse Rate 84 06/06/21 09:10 Respiratory Rate 18 06/06/21 08:28 Blood Pressure 232/100 06/06/21 09:10 Pulse Oximetry 95 06/06/21 09:10 [facility] - General Adult Medical Decision Making See note above after infiltration of Gastrografin it confirms the tube is no longer in the stomach. Radiologist concurs. I discussed with Dr. Feldman who is on-call Dr. Hendricks is available and he had placed the tube initially he will see the patient I discussed it with him as well is planning on taking the patient back to the GI lab for replacement of the tube. We will discharge the patient from the ER to the outpatient GI Lab where the tube can be replaced by surgery. Medical Records I reviewed the patient's medical records. Lab Data I reviewed the patient's lab results. Radiology Impressions KUB X-Ray 06/06/21 08:31 IMPRESSION: Examination does not establish the location of the gastrostomy tube within the stomach. Would recommend plain film of the abdomen follow-up as soon as possible with no further contrast injection to see if there is any change in the configuration of the contrast. Discharge Plan Discharge Patient Disposition: Home Clinical Impression: PEG tube malfunction, Cerebrovascular accident, S/P percutaneous endoscopic gastrostomy (PEG) tube placement Condition: Stable Discharge Orders: Discharge ED (Routine); Ordered 06/06/21 Ordered By: Adam Fitzgerald Coding Level of Care Code ED Tur[employer] And Grounds Supervisor for Chg Fwd Exam Comprehensive
[2021-06-06 09:10] VITALS: BP 232/100; PULSE 84; O2SAT 95
[2021-06-06] MEDS: sodium chloride 0.9% 1,000 ML 30 ML IV (09:41)
--- NOTE | 2021-06-06 10:08 | PC.SOCIAL ---
Ruth Ann from GI lab called and indicates transport is not available to return to [facility]. Also spoke with Ghada at [facility] who was not extremely helpful per Ruth Ann report and said to call an ambulance. This nurse called Ghada BHANDARI at [facility] and discussed case. Ghada was sill defensive but indicates she told nurse Ruth Ann to call an ambulance. This nurse explained that she does not meet medical necessity for this and the transport cost may be high. Ghada indicates she is aware but no other options other than to call ambulance and they will pay cost. Updated Ruth Ann in GI LAB to notify Viraj Gross when ready and the [facility] has agreed to cover expense.
[2021-06-06 10:13] VITALS: BP 121/73; PULSE 75; RESP 14; TEMP 36.6; O2SAT 95
--- NOTE | 2021-06-06 10:21 | PM.HP ---
Providers/Chief Complaint Chief Complaint: PULLED PEG TUBE History of Present Illness Darian Faith is a 80 year old female status post PEG placement on 05/27/2021 after a CVA who has now presented from the custodial with concerns about the PEG tube being pulled out. Dr. Fermin attempted to flush the PEG tube and there is leakage of contrast noted around the PEG tube. KUB showed contrast within the gastric lumen. Review of Systems General: Reports: ROS unobtainable due to mental status Medications/Allergies Home Medications Medication Instructions Recorded Confirmed Last Taken Type Vitamin D3 1 cap PO DAILY 05/23/21 05/23/21 Unknown History omeprazole 40 mg capsule,delayed 40 mg PO QAM 05/23/21 05/23/21 Unknown History release aspirin 81 mg tablet,delayed 81 mg PO DAILY #30 tab 05/30/21 Unknown Rx release atorvastatin 40 mg tablet 80 mg PO DAILY #30 tab 05/30/21 Unknown Rx clopidogrel 75 mg tablet 75 mg PO DAILY #30 tab 05/30/21 Unknown Rx losartan 50 mg tablet 50 mg PEG-TUBE DAILY #30 tab 05/30/21 Unknown Rx metoprolol tartrate 25 mg tablet 25 mg PEG-TUBE BID@0900,2100 #60 05/30/21 Unknown Rx tab Allergies Allergy/AdvReac Type Severity Reaction Status Date / Time No Known Allergies Allergy Verified 05/23/21 15:58 PFSH Acute PFSH: Medical History Cerebrovascular accident GERD (gastroesophageal reflux disease) HTN (hypertension) Hyperlipidemia Surgical History History of cholecystectomy History of hysterectomy History of tonsillectomy and adenoidectomy S/P percutaneous endoscopic gastrostomy (PEG) tube placement (05/27/21) Family History Other Cancer Social History Smoking and tobacco status: never smoked Alcohol intake: never Vitals/I&O/Wt Last Vital Signs Temp 97.9 F 06/06/21 08:28 Pulse 80 06/06/21 08:28 Resp 18 06/06/21 08:28 BP 220/78 06/06/21 08:28 Pulse Ox 95 06/06/21 08:28 Weight last 48 hrs Weight 170 lb Physical Exam Narrative: EXAM NARRATIVE: HEENT: Normocephalic Eye: Sclera /conjunctiva normal Respiratory and chest: Bilateral clear breath sounds on auscultation Cardiovascular: Normal S1 and S2 heart sounds Abdomen: Soft to palpation, PEG tube left upper quadrant with disc in the subcutaneous tissue Neurological: Awake Skin: Intact, no lesions appreciated on gross exam A&P Assessment and plan (1) Malfunction of percutaneous endoscopic gastrostomy (PEG) tube: 80-year-old female status post PEG placement on 05/27/2021 for CVA who presents with a PEG that is partially pulled. KUB shows contrast within the gastric lumen but also has leakage around the PEG tube. 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
[2021-06-06 10:25] VITALS: BP 134/72; PULSE 72; RESP 12; O2SAT 97
--- NOTE | 2021-06-06 10:34 | P.OP_ITS ---
Operative Report Date of procedure: June 06, 2021 Pre-op diagnosis: Malpositioned PEG tube Post-op diagnosis: PEG tube tip within the subcutaneous tissue Procedure done: 1. Removal of gastrostomy tube 2. Percutaneous endoscopic placement of 20 Setswana [place] [employer] Endovive gastrostomy tube using pull technique 3. Endoscopic closure of gastrostomy using Resolution clip x2 Pathology: none sent Surgeon: Chad Hendricks Anesthesia: MAC Condition: stable Disposition: PACU Brief History: This is a 80-year-old female status post PEG placement for CVA whose tube got pulled out today. Patient did not have any evidence of peritonitis and therefore plan was for possible repositioning/replacement of PEG tube Procedure: The patient was taken to the Operating Room and was placed under monitored anesthesia care after antibiotic had been administered. A bite block was placed and gastroscope was introduced and advanced up to the stomach and the first portion of the duodenum. There were no abnormalities noted in the esophagus, stomach and duodenum. The gastrostomy where the PEG was previously placed was identified by the tip of the PEG tube was in the subcutaneous space and could not be advanced into the gastric lumen due to body habitus. The site for the planned PEG was confirmed in the left upper quadrant with transillumination using gastroscope noted through the abdominal wall and indentation of the abdominal wall noted on the gastroscope, this was lateral to the previously placed PEG since patient had a subcutaneous fluid collection/swelling from the malpositioned PEG tube. This site was marked, and total of 5 milliliters of 1% lidocaine was infiltrated. An 11-blade was used to make a stab incision. An introducer needle was passed through the abdominal wall into the gastric lumen and the needle removed and the needle removed and the sheath left behind. A guidewire was passed through the introducer needle into the gastric lumen and grasped with a snare attached to the gastroscope. The gastroscope was withdrawn along with the guidewire, which was attached to the 20-Setswana EndoVive PEG tube. The guidewire was then pulled through the abdominal wall along with the PEG through the mouth into the gastric lumen until the inner disc was noted to stand against the gastric wall. The gastroscope was reintroduced to confirm good position. The gastrostomy site from prior PEG tube was then closed with placement of 2 Resolution clips. The outer disc was attached and the two way valve was fixed to the PEG tube. The outer disc was noted to be at 6 centimeters at the skin level. The prior PEG tube site is packed with quarter inch ribbon gauze. Sterile dressing and abdominal binder was placed. The patient was stable throughout the procedure.
--- NOTE | 2021-06-06 10:41 | PC.NURSE ---
Nurse Ghada at [facility] given report. PEG tube not to be used today except for meds only. Agriculture Science Teacher to help with tube feedings to meet goal. Tube feedings to be started very slow and advanced slowly. Old PEG tube site lightly packed with 1 inch Nu-gauze to serve as wick. PEG unclamped with glove on end. Abdominal binder in place. [facility] to provide Keflex and Hydrocodone until pharmacy opens.
[2021-06-06 10:52] VITALS: BP 208/77; PULSE 91; RESP 22; O2SAT 97
[2021-06-06 10:59] VITALS: BP 217/80; PULSE 89; RESP 14; TEMP 36.9; O2SAT 97
--- NOTE | 2021-06-06 11:50 | PC.NURSE ---
Informed Daysi RN at [facility] that pt is to be seen in Dr. Hendricks's office in one week for followup. Daysi stated she would give a message to their transport personnel, Astrid Gusman to arrange the appointment.
--- NOTE | 2021-06-06 14:26 | ANES.PREANE2 ---
Pre-Anesthetic Assessment Height/Weight: Height 1.65 m Weight 77.111 kg Temp Pulse Resp BP Pulse Ox 98.4 F 89 14 217/80 97 06/06/21 10:59 06/06/21 10:59 06/06/21 10:59 06/06/21 10:59 06/06/21 10:59 Preop Diagnosis: Malpositioned PEG tube Operation Date: 06/06/21 09:45 Proposed Procedures p EGD(Not Applicable) - Chad Hendricks MD Was Beta Liam taken within 24 hours: Yes Was Clonidine taken within 24 hours: N/A Last intake: None Social No alcohol and No tobacco Exam alert, oriented x 3, clear to auscultation bilaterally and regular rate & rhythm Airway Submandibular: within normal limits Cervical ROM: within normal limits Mallampati: Class II Dentition: full GI Gastroesophageal Reflux Disease Leaking PEG tube Neuropsych Cerebrovascular Accident Anesthetic Plan ASA status: 3E (80 year old s/p recent CVA s/p PEG tube placement now with malfunctioning PEG tube) Anesthesia: Anesthesia Evaluation and General Risk of > 500 ml blood loss (7ml/kg in children): No Other Pertinent Information Late entry for care provided prior to Emergent case Medications/Allergies Home Medications Medication Instructions Recorded Confirmed Last Taken Type Vitamin D3 1 cap PO DAILY 05/23/21 05/23/21 Unknown History omeprazole 40 mg capsule,delayed 40 mg PO QAM 05/23/21 05/23/21 Unknown History release aspirin 81 mg tablet,delayed 81 mg PO DAILY #30 tab 05/30/21 Unknown Rx release atorvastatin 40 mg tablet 80 mg PO DAILY #30 tab 05/30/21 Unknown Rx clopidogrel 75 mg tablet 75 mg PO DAILY #30 tab 05/30/21 Unknown Rx losartan 50 mg tablet 50 mg PEG-TUBE DAILY #30 tab 05/30/21 Unknown Rx metoprolol tartrate 25 mg tablet 25 mg PEG-TUBE BID@0900,2100 #60 05/30/21 Unknown Rx tab cephalexin 500 mg capsule 500 mg PO Q8H 7 Days #21 cap 06/06/21 Unknown Rx cephalexin 500 mg capsule 500 mg PO TID 7 Days #21 cap 06/06/21 Unknown Rx hydrocodone 5 mg-acetaminophen 325 1 tab PO Q6H PRN #20 tab 06/06/21 Unknown Rx mg tablet Allergies Allergy/AdvReac Type Severity Reaction Status Date / Time No Known Allergies Allergy Verified 05/23/21 15:58 [facility] Anesthesia Medical History Cerebrovascular accident GERD (gastroesophageal reflux disease) HTN (hypertension) Hyperlipidemia Surgical History History of cholecystectomy History of hysterectomy History of tonsillectomy and adenoidectomy S/P percutaneous endoscopic gastrostomy (PEG) tube placement (05/27/21) Family History Other Cancer Social History Smoking and tobacco status: never smoked Alcohol intake: never Data Anesthesia Cardiac Studies: Echocardiogram 05/24/21
--- NOTE | 2021-06-06 14:30 | ANE.PACU2 ---
Inpatient post-anesthesia follow up: Airway intact: Yes Vital signs: Temperature 98.4 F Pulse Rate 89 Respiratory Rate 14 Blood Pressure 217/80 Pulse Oximetry 97 Oxygen Delivery Me thod Room Air Oxygen Flow Rate 1.5 Fraction of Inspir ed Oxygen Hydration adequate: Yes Nausea and vomiting: No Pain level: 1 Mental status: Baseline
== END 2021-06-06 11:15 | disposition home or self-care (01) ==
LOC: ER 09:24 → OPS 09:26
PROVIDERS: Emergency Provider Family Medicine; PCP Family Medicine; Visit Provider Surgery
PROC: 0DJ08ZZ Inspection of Upper Intestinal Tract, Via Natural or Artificial Opening Endoscopic (ICD-10-PCS; CPT 43235; principal; 2021-06-06 09:45)
DX: K94.23 Gastrostomy malfunction (principal); K21.9 Gastro-esophageal reflux disease without esophagitis; Z86.73 Personal history of transient ischemic attack (TIA), and cerebral infarction without residual deficits; Z79.82 Long term (current) use of aspirin; I10 Essential (primary) hypertension; E78.5 Hyperlipidemia, unspecified
CPT/HCPCS: 43246; 74018; J7030

== ENCOUNTER → 2021-06-26 10:17 | Outpatient (BNVA) | payer MEDICARE, SELFPAY | PROVIDERS: PCP Family Medicine; Referring Provider Specialist; Visit Provider Specialist | DX: I69.398 Other sequelae of cerebral infarction (principal); I69.351 Hemiplegia and hemiparesis following cerebral infarction affecting right dominant side; R26.89 Other abnormalities of gait and mobility; R42 Dizziness and giddiness; I10 Essential (primary) hypertension; R00.2 Palpitations; Z93.1 Gastrostomy status | CPT/HCPCS: 99205 ==

== ENCOUNTER 2021-07-03 08:32 | Outpatient (CLI) | payer MEDICARE, SELFPAY ==
--- NOTE | 2021-07-03 08:46 | FL_ITS ---
WS: [id number] MODIFIED BARIUM SWALLOW HISTORY: Other dysphagia FLUOROSCOPY TIME: 0.9 minutes. Modified barium swallow was performed by the speech pathologist. Fluoroscopy was provided with the pa tient in a lateral projection. Multiple food consistencies were provided. Only a few swallows of liquid and thicker liquids were attempted. There is significant coating of the oropharynx with the barium. Incomplete clearing from the oropharynx. Moderate amount of laryngeal pe netration did elicit a cough. No aspiration. Patient is at high risk for aspiration due to the residu al barium. FL/FL barium swallow modifd [id number] IMPRESSION: 1. Study terminated early due to high risk of aspiration. 2. Poor clearing of the barium from the oropharynx and laryngeal penetration n oted. Please see speech therapist report also for recommendations.
== END 2021-07-03 08:33 | disposition home or self-care (01) ==
LOC: RAD 08:36
PROVIDERS: PCP Family Medicine; Visit Provider Physician Assistant
DX: R13.10 Dysphagia, unspecified (principal)
CPT/HCPCS: 74230; 92611

== ENCOUNTER → 2021-07-10 10:48 | Outpatient (BNVA) | payer MEDICARE, SELFPAY | PROVIDERS: PCP Family Medicine; Visit Provider Internal Medicine | DX: I63.9 Cerebral infarction, unspecified (principal); R00.1 Bradycardia, unspecified; I49.3 Ventricular premature depolarization | CPT/HCPCS: 93270 ==

== ENCOUNTER 2021-07-18 06:00 | Outpatient (RCR) | payer MEDICARE, SELFPAY | END 2021-08-01 23:59 | disposition home or self-care (01) | LOC: SPS 06:00 | PROVIDERS: PCP Family Medicine; Referring Provider Specialist; Visit Provider Specialist | DX: I63.9 Cerebral infarction, unspecified (principal) | CPT/HCPCS: 92610; 97110; 97112; 97162; 97530 ==

== ENCOUNTER 2021-08-02 06:00 | Outpatient (RCR) | payer MEDICARE, SELFPAY | END 2021-08-20 23:59 | disposition home or self-care (01) | LOC: SPS 06:00 | PROVIDERS: PCP Family Medicine; Referring Provider Specialist; Visit Provider Specialist | DX: I69.398 Other sequelae of cerebral infarction (principal); R26.89 Other abnormalities of gait and mobility; I69.391 Dysphagia following cerebral infarction | CPT/HCPCS: 92526; 97110; 97112; 97530 ==

== ENCOUNTER → 2021-08-27 11:46 | Outpatient (BNVA) | payer MEDICARE, SELFPAY | PROVIDERS: PCP Family Medicine; Visit Provider Specialist | DX: Z86.73 Personal history of transient ischemic attack (TIA), and cerebral infarction without residual deficits (principal); Z93.1 Gastrostomy status; F32.A Depression, unspecified | CPT/HCPCS: 99214 ==

== ENCOUNTER 2021-09-01 06:00 | Outpatient (RCR) | payer MEDICARE, SELFPAY | END 2021-09-20 16:52 | disposition home or self-care (01) | LOC: SST 06:00 | PROVIDERS: PCP Family Medicine; Referring Provider Specialist; Visit Provider Specialist | DX: I69.30 Unspecified sequelae of cerebral infarction (principal) | CPT/HCPCS: 92526 ==

== ENCOUNTER → 2021-09-27 08:23 | Outpatient (BNVA) | payer MEDICARE, SELFPAY | PROVIDERS: PCP Family Medicine; Visit Provider Surgery | DX: Z93.1 Gastrostomy status (principal) | CPT/HCPCS: 99214 ==

== ENCOUNTER 2022-06-18 16:07 | Outpatient (CLI) | payer MEDICARE, SELFPAY ==
[2022-06-18 16:42] LABS: D Dimer 0.57 ug/mIFEU (0-0.59)
== END 2022-06-18 16:08 | disposition home or self-care (01) ==
LOC: LAB 16:09
PROVIDERS: PCP Family Medicine; Visit Provider Nurse Practitioner Family
DX: R60.0 Localized edema (principal)
CPT/HCPCS: 85378

== ENCOUNTER 2023-01-19 13:20 | Emergency (ER) | payer MEDICARE, SELFPAY ==
[2023-01-19] VITALS (55 sets, daily range): BP systolic 137–190; BP diastolic 66–119; PULSE 66–118; RESP 19–55; TEMP 36.8; O2SAT 86–98; BMI 36.3
--- NOTE | 2023-01-19 13:22 | CT_ITS ---
WS: [id number] CT HEAD TECHNIQUE: Noncontrast CT of the head obtained from the skullbase to the vertex. CLINICAL INFORMATION: SYMPTOMS OF ACUTE STROKE COMPARISON: CT and MRI 05/23/2021 DLP: [address] scans [address] [facility] use at least one of these dose optimization techniques: automated e xposure control; mA and/or kV adjustment per patient size (includes targeted exams where dose is matc hed to clinical indication); or iterative reconstruction. FINDINGS: No evidence of intracranial hemorrhage or mass effect. Ventricular system and basal cisterns are witt nt. Moderate small vessel changes with mild parenchymal volume loss. Chronic infarct with encephaloma lacia in the RIGHT parieto-occipital lobes and RIGHT cerebellum unchanged since the prior MRI. Intrac ranial vascular calcification. Paranasal sinuses and mastoid air cells are well aerated. IMPRESSION: 1. No evidence of intracranial hemorrhage or mass effect. 2. Chronic infarcts in the RIGHT parasagittal parietal occipital lobes and RIGHT cerebellum with enc ephalomalacia present on the prior MRI 05/23/2021. 3. Moderate small vessel changes with mild parenchymal volume loss. 4. Intracranial vascular calcification. 5. No other acute findings. Notified Leonie Denise MD at 01/19/2023 1:31 PM.
--- NOTE | 2023-01-19 13:38 | CTR_ITS ---
PROCEDURE INFORMATION: Exam: CTA Head With Contrast, Arteriography Exam date and time: 01/19/2023 3:06 PM Age: 82 years old Clinical indication: Speech disturbance; Aphasia; Patient HX: HX of stroke in 2021; Additional info: TIA TECHNIQUE: Imaging protocol: Computed tomographic angiography of the head with contrast. Exam focused on the arteries. 3D rendering (Not supervised by radiologist): MIP and/or 3D reconstructed images were created by the technologist. Radiation optimization: All CT scans at this facility use at least one of these dose optimization techniques: automated exposure control; mA and/or kV adjustment per patient size (includes targeted exams where dose is matched to clinical indication); or iterative reconstruction. Contrast material: OMNI 350; Contrast volume: 100 ml; Contrast route: INTRAVENOUS (IV); REPORTING DATA: Count of CT and Cardiac NM exams in prior 12 months: This patient has received 0 known CTs and 0 known cardiac nuclear medicine studies in the 12 months prior to the current study. COMPARISON: CT angio headneck* [id number] 05/23/2021 10:53 AM RADIATION DOSE METRICS: Total DLP (mGy-cm): 459.59 FINDINGS: ANTERIOR CIRCULATION: Right internal carotid artery: Intracranial segment is patent with diffuse calcified atherosclerotic plaque causing moderate stenosis in the clinoid segment. No aneurysm. Right middle cerebral artery: No occlusion or significant stenosis. No aneurysm. Right anterior cerebral artery: No occlusion or significant stenosis. No aneurysm. There is developmental variant of azygos A1 segment. Left internal carotid artery: Intracranial segment is patent with calcified atherosclerotic plaque causing [id number] stenosis in the clinoid segment. No aneurysm. Left middle cerebral artery: No occlusion or significant stenosis. No aneurysm. Left anterior cerebral artery: No occlusion or significant stenosis. No aneurysm. POSTERIOR CIRCULATION: Right vertebral artery: No occlusion or significant stenosis. No aneurysm. Left vertebral artery: No occlusion or significant stenosis. No aneurysm. Basilar artery: No occlusion or significant stenosis. No aneurysm. Right posterior cerebral artery: No occlusion or significant stenosis. No aneurysm. Left posterior cerebral artery: No occlusion or significant stenosis. No aneurysm. Brain: No definite mass, mass effect, or midline shift. Cerebral ventricles: No ventriculomegaly. Bones/joints: Unremarkable. No acute fracture. Soft tissues: Unremarkable. PROCEDURE INFORMATION: Exam: CTA Neck With Contrast Exam date and time: 01/19/2023 3:06 PM Age: 82 years old Clinical indication: Speech disturbance; Aphasia; Patient HX: HX of stroke in 2021; Additional info: TIA TECHNIQUE: Imaging protocol: Computed tomographic angiography of the neck with contrast. 3D rendering (Not supervised by radiologist): MIP and/or 3D reconstructed images were created by the technologist. Radiation optimization: All CT scans at this facility use at least one of these dose optimization techniques: automated exposure control; mA and/or kV adjustment per patient size (includes targeted exams where dose is matched to clinical indication); or iterative reconstruction. Contrast material: OMNI 350; Contrast volume: 100 ml; Contrast route: INTRAVENOUS (IV); REPORTING DATA: Count of CT and Cardiac NM exams in prior 12 months: This patient has received 0 known CTs and 0 known cardiac nuclear medicine studies in the 12 months prior to the current study. COMPARISON: CT angio headneck* [id number] 05/23/2021 10:53 AM RADIATION DOSE METRICS: Total DLP (mGy-cm): 459.59 FINDINGS: Right common carotid artery: No significant stenosis. No dissection or occlusion. Right internal carotid artery: Extracranial segment is patent with calcified plaque at the origin causing no significant stenosis. No dissection or occlusion. Right external carotid artery: No occlusion or significant stenosis. Left common carotid artery: No significant stenosis. No dissection or occlusion. Left internal carotid artery: Extracranial segment is patent with calcified plaque at the origin causing no significant stenosis. No dissection or occlusion. Left external carotid artery: No occlusion or significant stenosis. Right vertebral artery: No dissection or occlusion. Calcified plaque at the origin causing moderate stenosis. Left vertebral artery: No significant stenosis. No dissection or occlusion. Right subclavian artery: There is suspected severe stenosis in the origin of the right subclavian artery (series 6, image 48, series 19, image 35). Soft tissues: No significant soft tissue swelling. Bones/joints: No acute fracture. CT/CT angio headneck* [id number] IMPRESSION: No large occlusion. Intracranial atherosclerosis with moderate right and mild to moderate left carotid stenosis. IMPRESSION: No carotid stenosis. 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 REFERENCES: NASCET CRITERIA. The degree of stenosis in the cervical segment of the internal carotid artery is based on NASCET criteria. Normal is no stenosis. Mild is less than 50% stenosis. Moderate is 50-69% stenosis. Severe is 70% to 99% stenosis. Total occlusion is no detectable patent lumen.
[2023-01-19] MEDS: clopidogrel 75 mg Tablet PO (13:47)
[2023-01-19] MEDS: sodium chloride 0.9% 500 ML IV (13:47)
[2023-01-19 13:49] LABS: Basophils # 0.1 10^3/uL (0.0-0.1); Basophils % 0.7 %; Eosinophils # 0.1 10^3/uL (0.0-0.8); Eosinophils % 1.6 %; Hematocrit 42.8 % (36-47); Lymphocytes # 2.8 10^3/uL (0.8-4.8); Lymphocytes % 36.8 %; Mean Corpuscular HGB Conc 30.8 g/dL (30-55); Mean Corpuscular Volume 90.9 fl (85-98); Monocytes # 0.7 10^3/uL (0.2-0.9); Monocytes % 8.9 %; Neutrophils # 3.89 10^3/uL (1.8-7.7); Neutrophils % 51.3 %; Nucleated Red Blood Cells % 0 %; Platelet Count 355 10^3/cmm (157-399); Red Blood Count 4.71 10^6/uL (3.85-5.65); Red Cell Distribution Width 15.2 % (12.1-15.1); White Blood Count 7.56 10^3/uL (3.29-11.43)
--- NOTE | 2023-01-19 13:57 | P.CONIM_ITS ---
Providers/Reason For Consult Consulting Physician/Specialty*: Slick Will MD neurology and epilepsy Reason for Consult*: Critical care, code stroke emergency room department room 11 Primary Care Provider: Evangelista Still MD History of Present Illness History of Present Illness Darian Faith is a 82 year old female with a history of Infarcts involving the RIGHT posterior circulation involving the inferior RIGHT cerebellum, medial RIGHT occipital lobe and a small portion of the medulla oblongata. CT angiogram of the head and neck revealed Near 50% stenosis in the cavernous intracranial carotid arteries extending into the supraclinoid carotids. Mild focal narrowing in the LEFT M1 segment. No complete occlusion and no thrombus identified. 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 No acute thrombus on May 23, 2021. According to the family, the patient was having difficulty swallowing and she also had ataxia but no obvious focal weakness. The patient underwent a PEG placement and was started on Plavix 75 mg p.o. every morning for 21 days and aspirin 81 mg p.o. daily. The family stated that the PEG tube was removed in October 2021 and the patient was continued on baby aspirin 81 mg a day. Patient did not experience any side effects from the Plavix. Patient has no GI bleeding issues.The patient also has a history of hypertension and is prediabetic. The patient was at home with family with last known well around 12 PM on 01/19/2023. The patient was observed at 12:10 PM to display difficulty speaking and was using single words. The patient's nonfluent aphasia lasted from 12:10 PM to 12:30 PM. When the patient arrived at the emergency room at 12:53 PM she was back to her baseline. Noncontrast head CT was obtained and revealed Chronic infarcts in the RIGHT parasagittal parietal occipital lobes and RIGHT cerebellum with encephalomalacia present on the prior MRI 05/23/2021.? Moderate small vessel changes with mild parenchymal volume loss. Intracranial vascular calcification. No acute findings were observed. Patient was scheduled for CT angiogram of the head and neck but the results of the study was pending at the time of this dictation. NIH score= 0. Patient's blood pressure per EMT worse reported to be 160/90 with serum glucose of 170 on Accu- Chek. 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 daily Metoprolol 25 mg p.o. twice daily Aspirin 81 mg p.o. bryan Celexa 5 mg p.o. daily Norvasc 10 mg p.o. daily Celexa 5 mg p.o. daily Omeprazole 40 mg p.o. daily Crestor 20 mg p.o. daily Habits: None Family history remarkable for a mother who suddenly at age 40 ? Review of Systems General: Reports: 10 or more systems reviewed and unremarkable except in HPI and below Medications/Allergies Home Medications Medication Instructions Recorded Confirmed Last Taken Type aspirin 81 mg tablet,delayed 81 mg PO DAILY #30 tabs 05/30/21 09/27/21 Unknown Rx release atorvastatin 40 mg tablet 80 mg PO DAILY #30 tabs 05/30/21 09/27/21 Unknown Rx losartan 50 mg tablet 100 mg peg-tube DAILY 06/11/21 09/27/21 Unknown History citalopram 20 mg tablet 10 mg PO DAILY #30 tabs 08/27/21 09/27/21 Unknown Rx amlodipine 2.5 mg tablet 2.5 mg PO ONCE 09/27/21 09/27/21 Unknown History metoprolol tartrate 25 mg tablet 25 mg peg-tube BID@0900,2100 09/27/21 Unknown History omeprazole 40 mg capsule,delayed 40 mg PO ONCE 09/27/21 09/27/21 Unknown History release rosuvastatin 10 mg tablet (Crestor) 10 mg PO DAILY 09/27/21 09/27/21 Unknown History Allergies Allergy/AdvReac Type Severity Reaction Status Date / Time No Known Allergies Allergy Verified 01/19/23 13:48 Current Medications Generic Name Dose Route Start Last Admin Trade Name Freq PRN Reason Stop Dose Admin Sodium Chloride 500 mls @ 500 mls/hr 01/19/23 13:39 01/19/23 13:47 Sodium Chloride 0.9% IV 01/19/23 14:38 500 mls/hr ONCE ONE Administration PFSH Acute PFSH: Medical History Cerebrovascular accident GERD (gastroesophageal reflux disease) HTN (hypertension) Hyperlipidemia Surgical History History of cholecystectomy History of hysterectomy History of tonsillectomy and adenoidectomy S/P percutaneous endoscopic gastrostomy (PEG) tube placement (05/27/21) replaced on 06/06/2021 Family History Other Cancer Social History Smoking and tobacco status: never smoked Alcohol intake: never Vitals/I&O/Wt Last Vital Signs Temp 98.2 F 01/19/23 13:31 Pulse 74 01/19/23 13:31 BP 177/80 01/19/23 13:31 Pulse Ox 98 01/19/23 13:31 O2 Del Method Room Air 01/19/23 13:31 Weight last 48 hrs Weight 225 lb Physical Exam Narrative: NIH score = 0 The patient is awake and alert and oriented to person and place and situation. Head atraumatic. Neck supple. Cranial nerves II through XII intact. There were no nystagmus. Extraocular movements intact. Visual chin appear to be full via confrontation. There was no facial weakness. Motor testing 5/5 bilaterally in the upper and lower extremities. Becuqb-[id number] and denu-bjoh-nyrp maneuvers revealed no ataxia. Sensory examination was intact to gross modalities. There was no neglect. Deep tendon reflexes grossly 2+ plantar responses flexor bilaterally there was no clonus. Throat clear. Lungs clear. Heart regular rhythm and rate. Extremities were negative for clubbing or cyanosis or edema Data 01/19/23 12:55 01/19/23 12:55 A&P Assessment and plan (1) TIA (transient ischemic attack): Impression 1. Transient ischemic attack manifested as speech difficulty lasting for approximately 20 minutes, resolved on 01/19/2023 2. 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 No acute thrombus on May 23, 2021 3. History of right posterior circulation stroke 4. Hypertension 5. Prediabetic Plan: 1. Recommend performing CT angiogram of the head and neck to assess for progression in stenosis reported on previous CT angiogram performed May 23, 2021 2. Resume Plavix 75 mg p.o. every morning with aspirin 81 mg p.o. every morning with food 3. Increase Crestor to 40 mg p.o. q. evening 4. Recommend Cardiac evaluation 5. Metabolic lab per NIH stroke protocol 6. Please schedule patient for follow-up in the neurology office in 2 weeks post discharge if CT angiogram is unchanged and metabolic lab is unrevealing Consult Attestations Medical Necessity Statement: Patient evaluated by neurology for critical care code stroke emergency room bed 11 on 01/19/2023 Coding Level of Care Code 60679 Diagnoses TIA (transient ischemic attack) G45.9 Time Spent (min) 30
[2023-01-19 14:18] LABS: INR 1.03 (0.8-1.2); Partial Thromboplastin Time 29.5 SECONDS (23.9-36.7)
[2023-01-19 14:25] LABS: Alanine Aminotransferase 16 U/L (0-33); Albumin Level 4.2 g/dL (3.5-5.2); Alkaline Phosphatase 78 U/L (35-105); Anion Gap 12.8 (5-19); Aspartate Amino Transferase 26 U/L (0-32); Blood Urea Nitrogen 19 mg/dL (8-23); Calcium 9.3 mg/dL (8.5-10.5); Carbon Dioxide 28 mmol/L (22-29); Chloride 101 mmol/L (98-107); Glucose 158 mg/dL (65-115); Osmolality Calculated 290 mOsm/kg (285-295); Potassium 4.8 mmol/L (3.5-5.1); Sodium 137 mmol/L (136-145); Total Bilirubin 0.3 mg/dL (0.15-1.2); Total Protein 7.2 g/dL (6.6-8.7)
--- NOTE | 2023-01-19 14:26 | PC.PHAR ---
pts daughter and granddaughter verified pts medications
--- NOTE | 2023-01-19 15:05 | ED_ITS ---
HPI - Neuro Symptoms/Deficit General: Chief Complaint: Neuro Symptoms/Deficit Stated Complaint: STROKE Time Seen by Provider: 01/19/23 13:39 History of Present Illness: 82-year-old female brought to emergency room via EMS due to change in speech and slurred speech around 1230. According to the family the symptoms lasted about 15 to 20 minutes. Upon present emergency room patient is back to baseline and was able to speak in full sentences without any difficulties. Andres ragsdale reviewed that patient had a stroke in May of last year and was on Plavix which was discontinued after 30 days. Patient denies any recent head injury or fall. No numbness or tingling or weakness of the upper or lower extremity. Patient has any headache, blurry vision, nausea, vomiting or neck pain. Patient with history of hypertension, hyperlipidemia and hypertension Associated symptoms: Deny vertigo Review of Systems General: Reports: 10 or more systems reviewed and unremarkable except in HPI and below Const: Denies: fever(s), chills or body aches Eyes: Denies: change in vision, blurry vision, blind spots, photophobia, eye discomfort, eye discharge, eye redness, dry eyes, increased production of tears, floaters or seeing flashes : Reports: urinary hesitancy; Denies: flank pain, difficulty voiding, dysuria, urinary frequency, urinary urgency, dribbling, nocturia, oliguria, urinary incontinence, hematuria or genital lesions Neuro: Reports: Slurred speech present; Denies: sensory changes, lack of coordination, difficulty walking, frequent f alls, dizziness, vertigo or confusion [facility] ED PFSH: Medical History Cerebrovascular accident GERD (gastroesophageal reflux disease) HTN (hypertension) Hyperlipidemia Surgical History History of cholecystectomy History of hysterectomy History of tonsillectomy and adenoidectomy S/P percutaneous endoscopic gastrostomy (PEG) tube placement (05/27/21) replaced on 06/06/2021 Family History Other Cancer Social History Smoking and tobacco status: never smoked Alcohol intake: never NIH stroke score NIHSS: Level Of Consciousness - 1a: 0 Level Of Consciousness Questions - 1b: Both Correct Level Of Consciousness Commands - 1c: Both Correct Best Gaze - 2: Normal Visual Garcia - 3: No Visual Loss Facial Palsy - 4: Normal Motor Arm Right - 5: No Drift Motor Arm Left - 5: No Drift Motor Leg Right - 6: No Drift Motor Leg Left - 6: No Drift Limb Ataxia - 7: Absent Sensory - 8: Normal Best Language - 9: No Aphasia Dysarthia - 10: Normal Extinction And Inattention - 11: 0 Score: Total Score: 0 Physical Exam Const: COMMON NORMALS: no acute distress, average body habitus, patient oriented x3, no limitations, healthy appearing, alert and well nourished HENMT: COMMON NORMALS: normocephalic, atraumatic, hearing grossly normal bilaterally, external ears normal, EAC's normal, TM's normal bilaterally, Normal external nose present, Normal nasal mucous membranes and turbinates present, moist oral mucous membranes, oropharynx normal, dentition normal and gingiva normal HEAD & SCALP: normocephalic and atraumatic NOSE: Normal external nose present and Normal nasal mucous membranes and turbinates present EXTERNAL EAR: Yes external ears normal EXTERNAL AUDITORY CANAL: EAC's normal TYMPANIC MEMBRANE: TM's normal bilaterally Eye: COMMON NORMALS: Equal, round and reactive pupils present, EOMs intact bilaterally, conjunctivae normal, no scleral icterus, no papilledema, normal visual garcia by confrontation and fundi normal bilaterally CONJUNCTIVA: Yes conjunctivae normal PUPIL: Yes Equal, round and reactive pupils present DIRECT OPHTHALMOSCOPY: Yes no papilledema and Yes fundi normal bilaterally Neck/C-Spine: COMMON NORMALS: no JVD Chest: COMMONS NORMALS: normal inspection of the chest, normal palpation of entire chest wall, normal inspection of the breasts and normal palpation of the breasts Breast/axilla inspection: Yes normal inspection of the breasts BREAST/AXILLA PALPATION: Yes normal palpation of the breasts Resp: COMMON NORMALS: normal respiratory effort, No retractions, No use of accessory muscles, clear to auscultation bilaterally and percussion normal AUSCULTATION: clear to auscultation bilaterally PERCUSSION: percussion normal Cardio: COMMON NORMALS: no JVD, regular rate, regular rhythm, S1 normal heart sound present, S2 normal heart sound present, No gallops present (Cardio), No clicks present (Cardio), No murmurs present (Cardio), No rub (Cardio) and Peripheral pulses 2+ throughout RATE: regular rate RHYTHM: regular rhythm HEART SOUNDS: S1 normal heart sound present and S2 normal heart sound present PERIPHERAL PULSES: Peripheral pulses 2+ throughout GI: COMMON NORMALS: Normal to inspection, nondistended, normoactive bowel sounds present, Soft to palpation, non-tender, No hepatosplenomegaly present, no masses and no bruits PALPATION: Yes Soft to palpation and Yes No hepatosplen omegaly present Neuro: COMMON NORMALS: patient oriented x3 SENSORIUM/ORIENTATION: Yes alert CRANIAL NERVES: Yes CN normal except as noted COORDINATION/BALANCE: finge r-to-nose test normal and ddgs-bj-pbon test normal SPEECH: speech normal, speech normal, no anomia, no expressive aphasia and no receptive aphasia GAIT: Yes Normal gait present SENSORY EXAM: Yes extremities MOTOR EXAM: 5/5 motor strength present throughout COORDINATION: gxkmgp-np-zkhf test normal and hkxo-ao-xfpi test normal Psych: COMMON NORMALS: mental status grossly normal, Normal thought process present, cooperative, normal affect, speech normal, activity/motor behavior normal, denies hallucinations, denies homicidal ideation and denies suicidal ideation SPEECH: Yes normal speech THOUGHT PROCESS: Normal thought process present Skin: COMMON NORMALS: no rashes or lesions noted, no wounds, turgor normal, no jaundice, no petechiae and no mottling GENERAL SKIN EXAM: no rashes or lesions noted and turgor normal Course Consultations: Consultation #1: Dr. Will at bedside initially with the patient. He reviewed the CT head and recommended CTA. He reviewed the CTA that was done in general together. Consultation #2: I spoke with Dr. Will again after reviewing the new CTA head and neck. Due to the new finding on the CT recommended cardiovascular consultation. I discussed the CT finding with Dr. Sotelo and he recommended cardiovascular consultation. Consultation #3: I discussed patient with the hospitalist and recommended talking to the cardiovascular before admitting patient. Discussed patient with Dr. Dickey and he felt that the patient should be transferred out or outpatient follow-up with cardiovascular. I spoke with [facility] and waiting for callback. Discussed patient with Dr. Rogers at [facility]. He does not recommend any intervention at this time. Vital Signs: Vital signs: Vital Signs Temperature 98.2 F 01/19/23 13:31 Pulse Rate 77 01/19/23 17:20 Respiratory Rate 29 H 01/19/23 17:20 Blood Pressure 167/77 01/19/23 18:10 Pulse Oximetry 96 01/19/23 18:30 Oxygen Delivery Me thod Room Air 01/19/23 16:25 MDM - Neuro Symptoms/Deficit Medical Decision Making Patient was made comfortable emergency room. Code stroke was initiated. Dr. Michel to neurologist presented emergency room immediately and evaluated patient at bedside. CT head was done and reviewed by him. He recommended CTA which was done and reviewed by by me and discussed with him over the phone. I discussed the stenosis noted on the CT and recommended cardiovascular consultation. I discussed the CT finding with Dr. Dickey and recommended consulting with cardiovascular at [place]. Discussed the CT with Dr. Rogers. Critical further disease not significant not for any surgical intervention at this time. I discussed all this with daughters and patient would like to be discharged home. Dr. Will Guerra that patient can be discharged home with aspirin and Plavix. Patient was to continue aspirin and Plavix was added to her regiment. Follow-up with Dr. Will recommended. Differential Diagnosis Likely carpal tunnel syndrome, convulsions, delirium, subarachnoid hemorrhage, peripheral neuropathy, cerebrovascular accident, multiple sclerosis and transi ent cerebral ischemia Lab Data 01/19/23 12:55 01/19/23 12:55 Radiology Impressions Head/Neck CTA 01/19/23 13:38 IMPRESSION: No large occlusion. Intracranial atherosclerosis with moderate right and mild to moderate left carotid stenosis. IMPRESSION: No carotid stenosis. 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 REFERENCES: NASCET CRITERIA. The degree of stenosis in the cervical segment of the internal carotid artery is based on NASCET criteria. Normal is no stenosis. Mild is less than 50% stenosis. Moderate is 50-69% stenosis. Severe is 70% to 99% stenosis. Total occlusion is no detectable patent lumen. Laboratory Results WBC 7.56 10^3/uL (3.29-11.43) 01/19/23 12:55 RBC 4.71 10^6/uL (3.85-5.65) 01/19/23 12:55 Hgb 13.20 g/dL (11.27-16.99) 01/19/23 12:55 Hct 42.8 % (36-47) 01/19/23 12:55 MCV 90.9 fl (85-98) 01/19/23 12:55 MCH 28.0 pg (27-33) 01/19/23 12:55 MCHC 30.8 g/dL (30-55) 01/19/23 12:55 RDW 15.2 % (12.1-15.1) H 01/19/23 12:55 Plt Count 355 10^3/cmm (157-399) 01/19/23 12:55 MPV 10.0 fL (7.4-10.4) 01/19/23 12:55 Neut % (Auto) 51.3 % 01/19/23 12:55 Lymph % (Auto) 36.8 % 01/19/23 12:55 [place] % (Auto) 8.9 % 01/19/23 12:55 Eos % (Auto) 1.6 % 01/19/23 12:55 Baso % (Auto) 0.7 % 01/19/23 12:55 Neut # (Auto) 3.89 10^3/uL (1.8-7.7) 01/19/23 12:55 Lymph # (Auto) 2.8 10^3/uL (0.8-4.8) 01/19/23 12:55 [place] # (Auto) 0.7 10^3/uL (0.2-0.9) 01/19/23 12:55 Eos # (Auto) 0.1 10^3/uL (0.0-0.8) 01/19/23 12:55 Baso # (Auto) 0.1 10^3/uL (0.0-0.1) 01/19/23 12:55 Nucleated RBC % (auto) 0 % 01/19/23 12:55 Nucleated RBCs # 0.0 /100WBC 01/19/23 12:55 PT 13.80 SECONDS (12.1-14.9) 01/19/23 12:55 INR 1.03 (0.8-1.2) 01/19/23 12:55 APTT 29.5 SECONDS (23.9-36.7) 01/19/23 12:55 Sodium 137 mmol/L (136-145) 01/19/23 12:55 Potassium 4.8 mmol/L (3.5-5.1) 01/19/23 12:55 Chloride 101 mmol/L (98-107) 01/19/23 12:55 Carbon Dioxide 28 mmol/L (22-29) 01/19/23 12:55 Anion Gap 12.8 (5-19) 01/19/23 12:55 BUN 19 mg/dL (8-23) 01/19/23 12:55 Creatinine 1.2 mg/dL (0.5-0.9) H 01/19/23 12:55 GFR Calculation Not Reportable 01/19/23 12:55 Glucose 158 mg/dL (65-115) H 01/19/23 12:55 Calculated Osmolality 290 mOsm/kg (285-295) 01/19/23 12:55 Calcium 9.3 mg/dL (8.5-10.5) 01/19/23 12:55 Total Bilirubin 0.3 mg/dL (0.15-1.2) 01/19/23 12:55 AST 26 U/L (0-32) 01/19/23 12:55 ALT 16 U/L (0-33) 01/19/23 12:55 Alkaline Phosphatase 78 U/L (35-105) 01/19/23 12:55 Total Protein 7.2 g/dL (6.6-8.7) 01/19/23 12:55 Albumin 4.2 g/dL (3.5-5.2) 01/19/23 12:55 Globulin 3.0 g/dL (1.3-4.6) 01/19/23 12:55 XR interpretation done by ED provider, pending radiology final review Critical Care Time Critical Care Time: Critical Care Time: Yes (40) Total Critical Care Time: 40 Attestation: Time spent monitoring patient in the ER. Patient was monitor and reexamined multiple times. Time spent discussing labs and x-ray and CT with patient and family. Time spent discussing patient with the hospitalist, neurologist and cardiovascular at [facility]. Time spent reviewing old medical records including CT scan. Discharge Plan Discharge Patient Disposition: Home Clinical Impression: TIA (transient ischemic attack) Condition: Stable Prescriptions: New Plavix 75 mg tablet 75 mg PO DAILY Qty: 30 0RF No Action rosuvastatin [Crestor] 10 mg tablet 10 mg PO BEDTIME omeprazole 40 mg capsule,delayed release(DR/EC) 40 mg PO QAM citalopram 10 mg tablet 5 mg PO DAILY metoprolol tartrate 50 mg tablet 25 mg PO BID losartan 100 mg tablet 100 mg PO DAILY aspirin 81 mg tablet,delayed release (DR/EC) 81 mg PO QAM amlodipine 10 mg tablet 10 mg PO BEDTIME Discharge Orders: Discharge ED (Routine); Ordered 01/19/23 Ordered By: Elo Kaur Referrals: Slick Will MD [Physician] - 4-7 days Evangelista Still MD [Primary Care Provider] - Discharge Diet: Advance as tolerated Discharge Activity: Resume usual activity Patient Instructions: Opioid Safety, Pain Management Coding Level of Care Code ED Web Software Engineer for Evelyn Soto
[2023-01-19] MEDS: iohexol 350 mg/mL 500 mL Btl (per mL) IV (15:36)
== END 2023-01-19 18:54 | disposition home or self-care (01) ==
PROVIDERS: Emergency Provider Family Medicine; PCP Family Medicine
DX: G45.9 Transient cerebral ischemic attack, unspecified (principal); Z79.82 Long term (current) use of aspirin; Z86.73 Personal history of transient ischemic attack (TIA), and cerebral infarction without residual deficits; I10 Essential (primary) hypertension; E78.5 Hyperlipidemia, unspecified
CPT/HCPCS: 70450; 70496; 70498; 80053; 85025; 85610; 85730; 96360; 99285; J7040; Q9967

== ENCOUNTER → 2023-02-04 12:59 | Outpatient (BNVA) | payer MEDICARE, SELFPAY | PROVIDERS: PCP Family Medicine; Visit Provider Psychiatry & Neurology Neurology | DX: G45.9 Transient cerebral ischemic attack, unspecified (principal) | CPT/HCPCS: 99212 ==

== ENCOUNTER 2023-04-28 15:39 | Outpatient (CLI) | payer MEDICARE, SELFPAY ==
[2023-04-28 16:17] LABS: D Dimer 0.66 ug/mLFEU (0-0.59)
[2023-04-28 16:27] LABS: NT Pro B Type Natriuretic Pept 1913 pg/mL (0-450)
== END 2023-04-28 15:40 | disposition home or self-care (01) ==
PROVIDERS: PCP Family Medicine; Visit Provider Nurse Practitioner Family
DX: Z01.89 Encounter for other specified special examinations (principal)
CPT/HCPCS: 83880; 85378

== ENCOUNTER 2023-05-02 13:08 | Emergency (ER) | payer MEDICARE, SELFPAY ==
[2023-05-02 13:09] VITALS: BP 147/74; PULSE 85; RESP 16; TEMP 36.7; O2SAT 90; BMI 34.8
--- NOTE | 2023-05-02 13:45 | XRR_ITS ---
PROCEDURE INFORMATION: Exam: XR Chest Exam date and time: 05/02/2023 2:12 PM Age: 82 years old Clinical indication: Patient HX: Dyspnea; AMS; HTN TECHNIQUE: Imaging protocol: Radiologic exam of the chest. Views: 1 view. COMPARISON: CR XR chest 2V* [id number] 04/28/2023 3:00 PM FINDINGS: Lungs: No new focal consolidation. Pleural spaces: No pleural effusion. No pneumothorax. Heart/Mediastinum: No cardiomegaly. Bones/joints: No acute findings. XR/XR chest 1V portable [id number] IMPRESSION: No new focal consolidation.
--- NOTE | 2023-05-02 13:47 | ED_ITS ---
HPI - General Adult 2 General: Chief complaint: General Medical Stated complaint: confused Time Seen by Provider: 05/02/23 13:33 History of Present Illness: Patient brought to the ER by family members with complaints of increasing irritability and confusion. Family member says when she got to her mom's house today she was talking about putting plastic bags on her feet and talking about people in the family that were not actually there and hearing a baby cry it is not there. Patient does not deny doing this. Patient is alert oriented and not hearing or seeing anything and is not there in ER. But a week ago patient went to urgent care for breathing difficulties and was placed on Lasix and potassium. Per the family patient's breathing has improved but then this started today. Review of Systems 2 General: Reports: 10 or more systems reviewed and unremarkable except in HPI and below PFSH ED 2 PFSH: Medical History Hyperlipidemia HTN (hypertension) GERD (gastroesophageal reflux disease) Cerebrovascular accident Surgical History S/P percutaneous endoscopic gastrostomy (PEG) tube placement (05/27/21) replaced on 06/06/2021 History of cholecystectomy History of hysterectomy History of tonsillectomy and adenoidectomy Family History Other Cancer Social History Smoking and tobacco/nicotine status: never used tobacco/nicotine Alcohol intake: never Physical Exam 2 Const: COMMON NORMALS: no acute distress, average body habitus, patient oriented x3, no limitations, healthy appearing, alert and well nourished HENMT: COMMON NORMALS: normocephalic, atraumatic, hearing grossly normal bilaterally, external ears normal, Normal external nose present, moist oral mucous membranes and oropharynx normal HEAD & SCALP: normocephalic and atraumatic NOSE: Normal external nose present EXTERNAL EAR: Yes external ears normal Neck/C-Spine: COMMON NORMALS: full ROM, no lymphadenopathy, supple, no meningeal signs, no JVD and Thyroid normal THYROID: Thyroid normal Chest: COMMONS NORMALS: normal inspection of the chest and normal palpation of entire chest wall Resp: COMMON NORMALS: normal respiratory effort, No retractions, No use of accessory muscles and clear to auscultation bilaterally AUSCULTATION: clear to auscultation bilaterally Cardio: COMMON NORMALS: no JVD, regular rate, regular rhythm, S1 normal heart sound present, S2 normal heart sound present, No gallops present (Cardio), No clicks present (Cardio), No murmurs present (Cardio) and No rub (Cardio) R ATE: regular rate RHYTHM: regular rhythm HEART SOUNDS: S1 normal heart sound present and S2 normal heart sound present GI: COMMON NORMALS: Normal to inspection, nondistended, normoactive bowel sounds present, Soft to palpation, non-tender, No hepatosplenomegaly present and no masses PALPATION: Yes Soft to palpation and Yes No hepatosplenomegaly present Extremity: NARRATIVE EXTREMITY EXAM: 1-2+ nonpitting edema bilateral lower ex tremities. Neuro: COMMON NORMALS: patient oriented x3 SENSORIUM/ORIENTATION: Yes alert MENINGEAL SIGNS: Yes no meningeal signs Course 2 Vital Signs: Vital signs: Vital Signs Temperature 98.1 F 05/02/23 13:09 Pulse Rate 85 05/02/23 13:09 Respiratory Rate 16 05/02/23 13:09 Blood Pressure 147/74 05/02/23 13:09 Pulse Oximetry 90 05/02/23 13:09 Oxygen Delivery Me thod Room Air 05/02/23 13:09 MDM - General Adult Medical Decision Making Patient has lab work in the ER that included CBC CMP chest x-ray BNP TSH urinalysis magnesium all of which was essentially benign. BNP was elevated but was similar to prior BMPs. Specific gravity was low but is probably due to her being on Lasix currently. Patient appeared to be alert and oriented during physical exam. Patient be discharged home with a diagnosis of confusion as this may be related to possible dementia and should be followed up by her primary care doctor within the next 7 to 10 days for further evaluation testing. Differential Diagnosis Confusion, irritability, dyspnea Medical Records I reviewed the patient's medical records. Lab Data I reviewed the patient's lab results. 05/02/23 14:12 05/02/23 14:12 Radiology Impressions Chest X-Ray 05/02/23 13:45 IMPRESSION: No new focal consolidation. Laboratory Results WBC 5.92 10^3/uL (3.29-11.43) 05/02/23 14:12 RBC 4.32 10^6/uL (3.85-5.65) 05/02/23 14:12 Hgb 11.50 g/dL (11.27-16.99) 05/02/23 14:12 Hct 38.5 % (36-47) 05/02/23 14:12 MCV 89.1 fl (85-98) 05/02/23 14:12 MCH 26.6 pg (27-33) L 05/02/23 14:12 MCHC 29.9 g/dL (30-55) L 05/02/23 14:12 RDW 15.9 % (12.1-15.1) H 05/02/23 14:12 Plt Count 274 10^3/cmm (157-399) 05/02/23 14:12 MPV 9.2 fL (7.4-10.4) 05/02/23 14:12 Neut % (Auto) 73.3 % 05/02/23 14:12 Lymph % (Auto) 12.2 % 05/02/23 14:12 [place] % (Auto) 13.2 % 05/02/23 14:12 Eos % (Auto) 0.3 % 05/02/23 14:12 Baso % (Auto) 0.5 % 05/02/23 14:12 Neut # (Auto) 4.34 10^3/uL (1.8-7.7) 05/02/23 14:12 Lymph # (Auto) 0.7 10^3/uL (0.8-4.8) L 05/02/23 14:12 [place] # (Auto) 0.8 10^3/uL (0.2-0.9) 05/02/23 14:12 Eos # (Auto) 0.0 10^3/uL (0.0-0.8) 05/02/23 14:12 Baso # (Auto) 0.0 10^3/uL (0.0-0.1) 05/02/23 14:12 Nucleated RBC % (auto) 0 % 05/02/23 14:12 Nucleated RBCs # 0.0 /100WBC 05/02/23 14:12 Sodium 139 mmol/L (136-145) 05/02/23 14:12 Potassium 4.0 mmol/L (3.5-5.1) 05/02/23 14:12 Chloride 101 mmol/L (98-107) 05/02/23 14:12 Carbon Dioxide 29 mmol/L (22-29) 05/02/23 14:12 Anion Gap 13.0 (5-19) 05/02/23 14:12 BUN 10 mg/dL (8-23) 05/02/23 14:12 Creatinine 1.1 mg/dL (0.5-0.9) H 05/02/23 14:12 GFR Calculation Not Reportable 05/02/23 14:12 Glucose 139 mg/dL (65-115) H 05/02/23 14:12 Calculated Osmolality 289 mOsm/kg (285-295) 05/02/23 14:12 Calcium 9.1 mg/dL (8.5-10.5) 05/02/23 14:12 Magnesium 1.7 mg/dL (1.7-2.3) 05/02/23 14:12 Total Bilirubin 0.5 mg/dL (0.15-1.2) 05/02/23 14:12 AST 62 U/L (0-32) H 05/02/23 14:12 ALT 16 U/L (0-33) 05/02/23 14:12 Alkaline Phosphatase 84 U/L (35-105) 05/02/23 14:12 NT-Pro-B Natriuret Pep 2329 pg/mL (0-450) H 05/02/23 14:12 Total Protein 7.1 g/dL (6.6-8.7) 05/02/23 14:12 Albumin 4.0 g/dL (3.5-5.2) 05/02/23 14:12 Globulin 3.1 g/dL (1.3-4.6) 05/02/23 14:12 TSH 1.38 uIU/mL (0.27-4.20) 05/02/23 14:12 Urine Color Colorless (Yellow) 05/02/23 13:53 Urine Appearance Clear (CLEAR) 05/02/23 13:53 Urine pH 7 (5-7) 05/02/23 13:53 Ur Specific [place] 1.000 (1.005-1.030) L 05/02/23 13:53 Urine Protein Neg (Negative) 05/02/23 13:53 Urine Glucose (UA) Norm (Normal) 05/02/23 13:53 Urine Ketones Negative (Negative) 05/02/23 13:53 Urine Blood Neg (Negative) 05/02/23 13:53 Urine Nitrate Negative (Negative) 05/02/23 13:53 Urine Bilirubin Neg (Negative) 05/02/23 13:53 Urine Urobilinogen Norm mg/dL (Negative) 05/02/23 13:53 Ur Leukocyte Esterase Negative (Negative) 05/02/23 13:53 All radiology interpretation(s) finalized by discharge Discharge Plan Discharge Patient Disposition: Home Clinical Impression: Intermittent confusion Condition: Stable Prescriptions: No Action rosuvastatin [Crestor] 10 mg tablet 10 mg PO BEDTIME omeprazole 40 mg capsule,delayed release(DR/EC) 40 mg PO QAM citalopram 10 mg tablet 5 mg PO DAILY metoprolol tartrate 50 mg tablet 25 mg PO BID losartan 100 mg tablet 100 mg PO DAILY aspirin 81 mg tablet,delayed release (DR/EC) 81 mg PO QAM amlodipine 10 mg tablet 10 mg PO BEDTIME Plavix 75 mg tablet 75 mg PO DAILY Qty: 30 0RF Discharge Orders: Discharge ED (Routine); Ordered 05/02/23 Ordered By: Arsenio Montoya Referrals: Evangelista Still MD [Primary Care Provider] - 1 week Patient Instructions: Altered Mental Status (ED) Activity Restrictions/Additional Instructions: Your workup in ER was essentially negative for acute changes that could lead to acute confusion. Please follow-up with your family practice physician for further evaluation and testing. This may require further testing as it may be early signs of dementia or other things. Coding Level of Care Code ED Transition Teacher for Evelyn Soto
[2023-05-02 14:04] LABS: Add Urine Microscopic? NO; Charge for UA Resulting for Rev
[2023-05-02 14:08] LABS: Bilirubin Urine Neg (Negative); Blood Urine Neg (Negative); Glucose Urine UA Norm (Normal); Ketones Urine Negative (Negative); Leukocyte Esterase Urine Negative (Negative); Nitrate Urine Negative (Negative); Protein Urine Neg (Negative); Urine Appearance Clear (CLEAR); Urine Color Colorless (Yellow); Urobilinogen Urine Norm (Negative); pH Urine 7 (5-7)
[2023-05-02 14:29] LABS: Basophils % 0.5 %; Eosinophils % 0.3 %; Hematocrit 38.5 % (36-47); Lymphocytes # 0.7 10^3/uL (0.8-4.8); Lymphocytes % 12.2 %; Mean Corpuscular HGB Conc 29.9 g/dL (30-55); Mean Corpuscular Hemoglobin 26.6 pg (27-33); Mean Corpuscular Volume 89.1 fl (85-98); Mean Platelet Volume 9.2 fL (7.4-10.4); Monocytes # 0.8 10^3/uL (0.2-0.9); Monocytes % 13.2 %; Neutrophils # 4.34 10^3/uL (1.8-7.7); Neutrophils % 73.3 %; Nucleated Red Blood Cells % 0 %; Platelet Count 274 10^3/cmm (157-399); Red Blood Count 4.32 10^6/uL (3.85-5.65); Red Cell Distribution Width 15.9 % (12.1-15.1); White Blood Count 5.92 10^3/uL (3.29-11.43)
[2023-05-02 14:58] LABS: Alanine Aminotransferase 16 U/L (0-33); Alkaline Phosphatase 84 U/L (35-105); Aspartate Amino Transferase 62 U/L (0-32); Blood Urea Nitrogen 10 mg/dL (8-23); Calcium 9.1 mg/dL (8.5-10.5); Carbon Dioxide 29 mmol/L (22-29); Chloride 101 mmol/L (98-107); Creatinine Clr Calc Pharmacy 48.1476; Globulin 3.1 g/dL (1.3-4.6); Glucose 139 mg/dL (65-115); Magnesium 1.7 mg/dL (1.7-2.3); NT Pro B Type Natriuretic Pept 2329 pg/mL (0-450); Osmolality Calculated 289 mOsm/kg (285-295); Sodium 139 mmol/L (136-145); Thyroid Stimulating Hormone 1.38 uIU/mL (0.27-4.20); Total Bilirubin 0.5 mg/dL (0.15-1.2); Total Protein 7.1 g/dL (6.6-8.7)
== END 2023-05-02 16:10 | disposition home or self-care (01) ==
PROVIDERS: Emergency Provider Emergency Medicine; PCP Family Medicine
DX: R41.0 Disorientation, unspecified (principal); Z79.02 Long term (current) use of antithrombotics/antiplatelets; Z79.82 Long term (current) use of aspirin; E78.5 Hyperlipidemia, unspecified; I10 Essential (primary) hypertension; Z86.73 Personal history of transient ischemic attack (TIA), and cerebral infarction without residual deficits
CPT/HCPCS: 36415; 71045; 80053; 81003; 83735; 83880; 84443; 85025; 99284